=== PATIENT | female | born 1970 | race Caucasian/White ===

== ENCOUNTER 2023-02-03 07:58 | Outpatient (AMB) | payer BC, SELFPAY ==
[2023-02-03 08:04] VITALS: BP 114/72; PULSE 100; O2SAT 96; BMI 37.6
--- NOTE | 2023-02-03 08:04 | A.OFFPC_ITS ---
Vital Signs 02/03/23 08:04 Height 5 ft 3 in Weight 212 lb BMI 37.6 BP 114/72 Blood Pressure Location Lt brachial Position Sitting Pulse 100 Pulse Source Pulse Oximeter Pulse Oximetry (%) 96 Oxygen Delivery Method Room Air Intake Visit Reasons: Annual PE Intake Note: Pt is here today for PE. Allergies amoxicillin Allergy (Unknown, Verified 02/03/23 08:06) itchy throat codeine Allergy (Unknown, Verified 02/03/23 08:06) itchy throat penicillin V Allergy (Unknown, Verified 02/03/23 08:06) itchy throat Medication List - Last Reconciled 02/03/23 by Chelsea Ly MD ammonium lactate 12% 1 appl topical DAILY empagliflozin-linagliptin 25-5 mg (Glyxambi) 1 tab PO DAILY fluconazole 150 mg PO Q3D lidocaine 1.8% patches topical metformin ER 1,000 mg PO BID rosuvastatin (Crestor) 10 mg PO DAILY semaglutide (Ozempic) 2 mg (0.75 mL) subcut QWEEK Tobacco use date assessed: 02/03/23 Dental Screening Dental Screen Date: 02/03/23 Did you have a dental visit in the last 12 months?: Yes Did you have a dental problem in the last 6 months where you did not have access to dental care?: No Was dental information given to patient?: Patient has dentist HPI Annual PE HPI Details Pt presents for PE. COUNT INCLUDES [facility] Medical History (Updated 02/03/23 @ 08:52 by Chelsea Ly MD) Obesity Lower back pain Annual physical exam Hyperlipidemia DM type 2 (diabetes mellitus, type 2) Mammogram normal Normal Pap smear Lumbar disc herniation Diabetic eye exam Sleep apnea Carpal tunnel syndrome Surgical History History of carpal tunnel surgery Family History Mother No problems noted. Father No problems noted. Brother No problems noted. Brother No problems noted. Sister No problems noted. Sister No problems noted. Daughter No problems noted. Social History Household Members Other:: , 12 y/o daughter Housing: House Alcohol intake: current Alcohol intake frequency: holidays/special occasions only Patient Tobacco Use Status: Never used Tobacco e-Cigarette/Vaping Use: Never Used Current occupational status: employed Cognitive needs: No Hearing needs: No Vision needs: Yes Questionnaire Thrive Questionnaire Date Thrive assessed: 04/29/22 AUDIT C Alcohol Use Questionnaire (AUDIT-C) 1. How often do you have a drink containing alcohol?: Never 3. How often do you have six or more drinks on one occasion?: Never Total Score: 0 DAKOTA-7 AMB Questionnaire DAKOTA-7 Date DAKOTA - 7 assessed: 04/29/22 Source: Developed by Drs. Uche Stokes, Elizabeth Turner, Armando Barrios and colleagues, with an educational jamaica from [employer] Review of Systems Const All systems reviewed & are unremarkable except as noted in HPI and below Reports no additional complaints Eyes Reports no additional complaints ENT Reports no additional complaints Card Reports no additional complaints Resp Reports no additional complaints GI Reports no additional complaints Reports no additional complaints Physical exam (Primary Care) Vital Signs: Last Vital Signs Pulse 100 02/03/23 08:04 BP 114/72 02/03/23 08:04 Pulse Ox 96 02/03/23 08:04 Oxygen Delivery Method Room Air 02/03/23 08:04 BMI result Body Mass Index 37.6 Tobacco/Smoking Status: Tobacco use Status Tobacco use date assessed 02/03/23 02/03/23 08:08 Patient Tobacco Use Status Never used Tobacco 02/03/23 08:08 e-Cigarette/Vaping Use Never Used 02/03/23 08:05 Thrive Assessment: Date of Thrive Assessment Date Thrive assessed 04/29/22 02/03/23 08:05 Const General: no acute distress HENMT Head: Yes normal to inspection Ears: hearing grossly normal bilaterally Face and sinus: Yes normal facial exam Eyes General: appearance normal, both eyes and all related structures Neck Neck: Yes no lymphadenopathy and Yes supple Resp Effort & Inspection: normal respiratory effort Auscultation: clear to auscultation bilaterally Cardio Rhythm: regular rhythm Heart sounds: S1 normal heart sound present and S2 normal heart sound present GI Inspection: Yes normal to inspection Palpation (GI): Soft to palpation Percussion: Yes normal to percussion Auscultation: normal bowel sounds Extrem Other: Diabetic foot exam: skin is intact monofilament and vibration sensation intact bilaterally General: Yes no clubbing, cyanosis or edema Office Procedures Flu Questionnaire Does the patient have a severe egg allergy?: No Does the patient have severe life threatening allergies?: No Does the patient have a fever or illness today?: No Has the patient ever had Guillain-Artesia Syndrome?: No Has the patient ever had any past reaction to a flu shot?: No Immunizations flu vacc [id number] 6mos up(PF) 60 mcg(15 mcgx4)/0.5 mL IM syringe Performing Provider: Chelsea Ly MD Performing Location: [facility] Administered by: ELLIOTT Lawrence on 02/03/23 08:13 Dose Route Admin Location Dispensed Lot Number Expiration Date NDC 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 She will continue same medications follow-up in 4 months with a fasting labs before (2) Hyperlipidemia: Code(s): E78.5 - Hyperlipidemia, unspecified Plan: Continue statin (3) Colon cancer screening: Comment: negative Colreza 12/08 Code(s): Z12.11 - Encounter for screening for malignant neoplasm of colon (4) Mammogram normal: Comment: 10/2022 (5) Normal Pap smear: Comment: 11/2021 Dr. Conway (6) Annual physical exam: Code(s): Z00.00 - Encounter for general adult medical examination without abnormal findings Plan: Well-balanced diet regular exercise discussed with the patient (7) Obesity: Code(s): E66.9 - Obesity, unspecified Plan: Weight loss discussed with the patient Orders: Orders Influenza [id number] Immunization Today Z23 - Encounter for immunization Hemoglobin A1c 4 Months E11.9 - Type 2 diabetes mellitus without complications, E78.5 - Hyperlipidemia, unspecified Lipid Panel 4 Months E11.9 - Type 2 diabetes mellitus without complications, E78.5 - Hyperlipidemia, unspecified Complete Blood Count Man Dif 4 Months E11.9 - Type 2 diabetes mellitus without complications, E78.5 - Hyperlipidemia, unspecified Comprehensive [place]. Panel Fast 4 Months E11.9 - Type 2 diabetes mellitus without complications, E78.5 - Hyperlipidemia, unspecified Microalbumin, Random (w Creat) 4 Months E11.9 - Type 2 diabetes mellitus without complications, E78.5 - Hyperlipidemia, unspecified Coding Level of Care Code Est Pt Prev Care 40-64y(92894) Diagnoses DM type 2 (diabetes mellitus, type 2) E11.9 Hyperlipidemia E78.5 Colon cancer screening Z12.11 Mammogram normal Normal Pap smear Annual physical exam Z00.00 Obesity E66.9
== END 2023-02-03 08:39 | disposition home or self-care (01) ==
PROVIDERS: Visit Provider Internal Medicine
DX: Z00.00 Encounter for general adult medical examination without abnormal findings (principal); E11.9 Type 2 diabetes mellitus without complications; E78.5 Hyperlipidemia, unspecified; Z12.11 Encounter for screening for malignant neoplasm of colon; E66.9 Obesity, unspecified; Z23 Encounter for immunization
CPT/HCPCS: 90471; 90686; 99396

== ENCOUNTER 2023-06-06 09:23 | Outpatient (AMB) | payer BC, SELFPAY ==
--- NOTE | 2023-06-06 09:26 | MHC.PC.OV ---
Vital Signs 06/06/23 09:27 Height 5 ft 3 in Weight 211 lb BMI 37.4 BP 110/66 Blood Pressure Location Lt brachial Position Sitting Pulse 75 Pulse Source Pulse Oximeter Pulse Oximetry (%) 98 Oxygen Delivery Method Room Air Intake Visit Reasons: 4 month follow up Intake Note: Pt is here today for 4 months follow up visit. Allergies amoxicillin Allergy (Unknown, Verified 06/06/23 09:29) itchy throat codeine Allergy (Unknown, Verified 06/06/23 09:29) itchy throat penicillin V Allergy (Unknown, Verified 06/06/23 09:29) itchy throat Medication List - Last Reconciled 06/06/23 by Chelsea Ly MD ammonium lactate 12% 1 appl topical DAILY empagliflozin-linagliptin 25-5 mg (Glyxambi) 1 tab PO DAILY fluconazole 150 mg PO Q3D lidocaine 1.8% patches topical lisinopril 2.5 mg PO DAILY metformin ER 1,000 mg PO BID Mounjaro (tirzepatide) 10 mg (0.5 mL) subcut QWEEK NS rosuvastatin (Crestor) 10 mg PO DAILY semaglutide (Ozempic) 2 mg (0.75 mL) subcut QWEEK Tobacco use date assessed: 06/06/23 Dental Screening Dental Screen Date: 06/06/23 Did you have a dental visit in the last 12 months?: Yes Did you have a dental problem in the last 6 months where you did not have access to dental care?: No Was dental information given to patient?: Patient has dentist HPI 4 month follow up HPI Details Pt presents for f/u DM 2, hyperlipid, stable on meds. [facility] Medical History (Updated 06/06/23 @ 10:06 by Chelsea Ly MD) Obesity Lower back pain Annual physical exam Hyperlipidemia DM type 2 (diabetes mellitus, type 2) Mammogram normal Normal Pap smear Lumbar disc herniation Diabetic eye exam Sleep apnea Carpal tunnel syndrome Surgical History History of carpal tunnel surgery Family History Mother No problems noted. Father No problems noted. Brother No problems noted. Brother No problems noted. Sister No problems noted. Sister No problems noted. Daughter No problems noted. Social History Household Members Other:: , 12 y/o daughter Housing: House Alcohol intake: current Alcohol intake frequency: holidays/special occasions only Patient Tobacco Use Status: Never used Tobacco e-Cigarette/Vaping Use: Never Used Current occupational status: employed Cognitive needs: No Hearing needs: No Vision needs: Yes Questionnaire PHQ-9 Over the last 2 weeks, how often have you been bothered by any of the following problems? 1. Little interest or pleasure in doing things: not at all 2. Feeling down, depressed, or hopeless: not at all 3. Trouble falling or staying asleep, or sleeping too much: more than half the days 4. Feeling tired or having little energy: not at all 5. Poor appetite or overeating: several days 6. Feeling bad about yourself - or that you are a failure or have let yourself or your family down: not at all 7. Trouble concentrating on things, such as reading the newspaper or watching television: not at all 8. Moving or speaking so slowly that other people could have noticed. Or the opposite - being so fidgety or restless that you have been moving around a lot more than usual: not at all 9. Thoughts that you would be better off or of hurting yourself in some way: not at all Total score: 3 Depression Screening Interpretation: Negative Depression Screening Done: Yes Source: Developed by Drs. Uche Stokes, Elizabeth Turner, Armando Barrios and colleagues, with an educational j[place] from [email or web address]. Thrive Questionnaire Date Thrive assessed: 06/06/23 I am a: Patient What is your living situation today?: I have a steady place to live Within the past 12 months, did the food you bought not last and you didn't have the money to get more?: Never true Within the past 12 months, did you worry whether your food would run out before you got money to buy more?: Never true Do you have trouble paying for medicines?: No Do you have trouble getting transportation to medical appointments?: No Do you have trouble paying your heating and electricity bill?: No Do you have trouble taking care of your child, family member or friend?: No Do you have trouble with day-to-day activities such as bathing, preparing meals, shopping, managing finances, etc.?: No Are you currently unemployed and looking for a job?: No Are you interested in more education?: No Please select the resources that you would like help with: None Currently or been in a relationship where the following occur: no concerns reported THRIVE Score: 0 AUDIT C Alcohol Use Questionnaire (AUDIT-C) 1. How often do you have a drink containing alcohol?: Never 3. How often do you have six or more drinks on one occasion?: Never Total Score: 0 DAKOTA-7 AMB Questionnaire DAKOTA-7 Date DAKOTA - 7 assessed: 06/06/23 Feeling nervous, anxious, or on edge: 0 = Not at all Not being able to stop or control worryin = Not at all Worrying too much about different things: 0 = Not at all Trouble relaxin = Not at all Being so restless that it is hard to sit still: 0 = Not at all Becoming easily annoyed or irritable: 0 = Not at all Feeling afraid as if something awful might happen: 0 = Not at all Total DAKOTA-7 score (0-4 normal; 5-9 mild; 10-14 moderate; 15-21 severe): 0 Source: Developed by Drs. Uche Stokes, Elizabeth Turner, Armando Barrios and colleagues, with an educational j[place] from [email or web address]. Review of Systems Const All systems reviewed & are unremarkable except as noted in HPI and below Reports no additional complaints Eyes Reports no additional complaints ENT Reports no additional complaints Card Reports no additional complaints Resp Reports no additional complaints GI Reports no additional complaints Reports no additional complaints Musc Reports no additional complaints Physical exam (Primary Care) Vital Signs: Last Vital Signs Pulse 75 06/06/23 09:27 BP 110/66 06/06/23 09:27 Pulse Ox 98 06/06/23 09:27 Oxygen Delivery Method Room Air 06/06/23 09:27 BMI result Body Mass Index 37.4 Tobacco/Smoking Status: Tobacco use Status Tobacco use date assessed 06/06/23 06/06/23 09:29 Patient Tobacco Use Status Never used Tobacco 06/06/23 09:29 e-Cigarette/Vaping Use Never Used 06/06/23 09:29 PHQ-9: PHQ-9 Score PHQ-9: Total score 3 06/06/23 09:33 Depression Screening Interpretation: Negative Thrive Assessment: Date of Thrive Assessment Date Thrive assessed 06/06/23 06/06/23 09:33 Currently or been in a relationship where the following occur: no concerns reported Const General: well developed HENMT Head: Yes normal to inspection Ears: hearing grossly normal bilaterally Face and sinus: Yes normal facial exam Mouth: Normal oral and palatal mucosa present Neck Neck: Yes no lymphadenopathy and Yes supple Resp Effort & Inspection: normal respiratory effort Auscultation: clear to auscultation bilaterally Cardio Rhythm: regular rhythm Heart sounds: S1 normal heart sound present and S2 normal heart sound present GI Inspection: Yes normal to inspection Palpation (GI): Soft to palpation Percussion: Yes normal to percussion Auscultation: normal bowel sounds Assessment and Plan Assessment & Plan (1) DM type 2 (diabetes mellitus, type 2): Code(s): E11.9 - Type 2 diabetes mellitus without complications Plan: A1c is 6.9, ADA diet increase exercise weight loss discussed with the patient she was advised to monitor her fasting blood glucose daily. Ozempic will be changed to Mounjaro 10 mg weekly and patient will continue metformin and Glyxambi (2) Annual physical exam: Code(s): Z00.00 - Encounter for general adult medical examination without abnormal findings (3) Hyperlipidemia: Code(s): E78.5 - Hyperlipidemia, unspecified Plan: Continue statin (4) Microalbuminuria: Code(s): R80.9 - Proteinuria, unspecified Plan: For microalbuminuria lisinopril 2.5 mg daily will be started. Follow-up in 3 months with a fasting labs before Orders: Orders Lipid Panel 3 Months E11.9 - Type 2 diabetes mellitus without complications, E78.5 - Hyperlipidemia, unspecified Comprehensive [place]. Panel Fast 3 Months E11.9 - Type 2 diabetes mellitus without complications, E78.5 - Hyperlipidemia, unspecified Hemoglobin A1c 3 Months E11.9 - Type 2 diabetes mellitus without complications, E78.5 - Hyperlipidemia, unspecified Medications: New Mounjaro (tirzepatide) 10 mg (0.5 mL) subcut QWEEK 6 mL 3RF NS lisinopril 2.5 mg PO DAILY 90 tabs 0RF Mounjaro (tirzepatide) 10 mg (0.5 mL) subcut QWEEK 6 mL 3RF NS lisinopril 2.5 mg PO DAILY 90 tabs 0RF Discontinued semaglutide (Ozempic) Discontinued Reason: Doctor's Order 2 mg (0.75 mL) subcut QWEEK 9 mL 1RF Coding Level of Care Code Est Pt Level 4 (03225) Diagnoses DM type 2 (diabetes mellitus, type 2) E11.9 Annual physical exam Z00.00 Hyperlipidemia E78.5 Microalbuminuria R80.9
[2023-06-06 09:27] VITALS: BP 110/66; PULSE 75; O2SAT 98; BMI 37.4
== END 2023-06-06 10:01 | disposition home or self-care (01) ==
PROVIDERS: PCP Internal Medicine; Visit Provider Internal Medicine
DX: E11.9 Type 2 diabetes mellitus without complications (principal); Z00.00 Encounter for general adult medical examination without abnormal findings; E78.5 Hyperlipidemia, unspecified; R80.9 Proteinuria, unspecified
CPT/HCPCS: 99214

== ENCOUNTER 2023-07-22 07:51 | Outpatient (AMB) | payer BC, SELFPAY ==
[2023-07-22 08:09] VITALS: BP 108/70; PULSE 109; O2SAT 98; BMI 35.6
--- NOTE | 2023-07-22 08:09 | MHC.PC.OV ---
Vital Signs 07/22/23 08:09 Height 5 ft 3 in Weight 201 lb BMI 35.6 BP 108/70 Blood Pressure Location Rt brachial Position Sitting Pulse 109 H Pulse Source Pulse Oximeter Pulse Oximetry (%) 98 Oxygen Delivery Method Room Air Intake Visit Reasons: Diarrhea, ? med side effect Intake Note: Pt is here today for a sick visit. Pt c/o diarrhea since Tuesday. Allergies amoxicillin Allergy (Unknown, Verified 07/22/23 08:17) itchy throat codeine Allergy (Unknown, Verified 07/22/23 08:17) itchy throat penicillin V Allergy (Unknown, Verified 07/22/23 08:17) itchy throat Tobacco use date assessed: 06/06/23 Dental Screening Dental Screen Date: 06/06/23 HPI Diarrhea, ? med side effect HPI Details Patient complains of 5 days of watery diarrhea some abdominal discomfort and nausea but no vomiting fever chills hematochezia melena. She denies taking any new medications or eating at the restaurants. Patient has been keeping the fluids down. Diabetes is stable on current medications. [facility] Medical History (Updated 07/22/23 @ 08:48 by Chelsea Ly MD) Obesity Lower back pain Annual physical exam Hyperlipidemia DM type 2 (diabetes mellitus, type 2) Mammogram normal Normal Pap smear Lumbar disc herniation Diabetic eye exam Sleep apnea Carpal tunnel syndrome Surgical History History of carpal tunnel surgery Family History Mother No problems noted. Father No problems noted. Brother No problems noted. Brother No problems noted. Sister No problems noted. Sister No problems noted. Daughter No problems noted. Social History Household Members Other:: , 12 y/o daughter Housing: House Alcohol intake: current Alcohol intake frequency: holidays/special occasions only Patient Tobacco Use Status: Never used Tobacco e-Cigarette/Vaping Use: Never Used Current occupational status: employed Cognitive needs: No Hearing needs: No Vision needs: Yes Questionnaire Thrive Questionnaire Date Thrive assessed: 06/06/23 DAKOTA-7 AMB Questionnaire DAKOTA-7 Date DAKOTA - 7 assessed: 06/06/23 Source: Developed by Drs. Uche Stokes, Elizabeth Turner, Armando Barrios and colleagues, with an educational j[place] from [employer]. Review of Systems Const All systems reviewed & are unremarkable except as noted in HPI and below Reports no additional complaints Eyes Reports no additional complaints ENT Reports no additional complaints Resp Reports no additional complaints GI Reports no additional complaints Reports no additional complaints Musc Reports no additional complaints Physical exam (Primary Care) Vital Signs: Last Vital Signs Pulse 109 H 07/22/23 08:09 BP 108/70 07/22/23 08:09 Pulse Ox 98 07/22/23 08:09 Oxygen Delivery Method Room Air 07/22/23 08:09 BMI result Body Mass Index 35.6 Tobacco/Smoking Status: Tobacco use Status Tobacco use date assessed 06/06/23 07/22/23 08:09 Patient Tobacco Use Status Never used Tobacco 07/22/23 08:09 e-Cigarette/Vaping Use Never Used 07/22/23 08:09 Thrive Assessment: Date of Thrive Assessment Date Thrive assessed 06/06/23 07/22/23 08:09 Const General: no acute distress HENMT Head: Yes normal to inspection Throat: Yes posterior oropharynx normal Resp Effort & Inspection: normal respiratory effort Auscultation: clear to auscultation bilaterally Cardio Rhythm: regular rhythm Heart sounds: S1 normal heart sound present and S2 normal heart sound present GI Inspection: Yes normal to inspection Palpation (GI): Soft to palpation Percussion: Yes normal to percussion Auscultation: normal bowel sounds Assessment and Plan Assessment & Plan (1) Diarrhea: Code(s): R19.7 - Diarrhea, unspecified Plan: For acute diarrhea supportive care discussed with the patient, comprehensive panel and stool studies will be obtained. Patient was advised to decrease metformin to once and skip Mounjaro this weekend. Orders: Orders Comprehensive Met. Panel Today R19.7 - Diarrhea, unspecified Complete Blood Count Auto Diff Today R19.7 - Diarrhea, unspecified GI Panel Today R19.7 - Diarrhea, unspecified Coding Level of Care Code Est Pt Level 3 (99574) Diagnoses Diarrhea R19.7
== END 2023-07-22 08:43 | disposition home or self-care (01) ==
PROVIDERS: PCP Internal Medicine; Visit Provider Internal Medicine
DX: R19.7 Diarrhea, unspecified (principal)
CPT/HCPCS: 99213

== ENCOUNTER 2023-07-22 08:46 | Outpatient (REF) | payer BC, SELFPAY ==
[2023-07-22 10:25] LABS: MANUAL DIFF FLAG NO
[2023-07-22 10:50] LABS: Basophils Percent Auto 0.3 % (0-2); Eosinophils Absolute Auto 0.2 X10*3/uL (0.0-0.4); Eosinophils Percent Auto 2.1 % (0-4); Hematocrit 49.2 % (37.0-47.0); Hemoglobin 16.2 g/dl (12.0-16.0); Imm Gran Abs Auto 0.04 X10*3/uL (0.00-0.03); Imm Gran Pct Auto 0.4 % (0.0-0.4); Lymphocytes Absolute Auto 2.4 X10*3/uL (1.2-4.9); Lymphocytes Percent Auto 22.5 % (20-40); Mean Corpuscular HGB Conc 32.9 g/dl (31.0-35.0); Mean Corpuscular Hemoglobin 28.4 pg (27.0-33.0); Mean Corpuscular Volume 86.3 fL (80.0-98.0); Mean Platelet Volume 10.2 fL (9.4-12.3); Monocytes Absolute Auto 0.8 X10*3/uL (0.1-1.2); Monocytes Percent Auto 7.4 % (2-11); Neutrophils Absolute Auto 7.2 x10*3/uL (2.0-8.3); Neutrophils Percent Auto 67.3 % (45-73); Platelet Count 325 X10*3/uL (160-400); Red Cell Distribution Width 13.2 % (11.0-16.0); White Blood Count 10.7 X10*3/uL (4.8-10.8)
[2023-07-22 11:08] LABS: Alanine Aminotransferase 12 U/L (0-31); Albumin Level 4.3 g/dL (3.5-5.0); Alkaline Phosphatase 88 U/L (39-117); Anion Gap 15 (12-20); Aspartate Amino Transferase 8 U/L (5-31); Bilirubin Total 0.7 mg/dL (0.0-1.0); Blood Urea Nitrogen 11 mg/dL (9-16); Calcium 10.3 mg/dL (8.4-10.2); Carbon Dioxide 23 mmol/L (22-29); Chloride 105 mmol/L (96-108); Estimated Glomerular Filt Rate > 60; Glucose Random 162 mg/dL (60-115); Potassium 3.3 mmol/L (3.3-5.1); Sodium 140 mmol/L (135-145); Total Protein 7.9 g/dL (6.5-8.0)
== END 2023-07-22 08:47 | disposition home or self-care (01) ==
LOC: HO.HMGCLDS 08:46
PROVIDERS: PCP Internal Medicine; Visit Provider Internal Medicine
DX: R19.7 Diarrhea, unspecified (principal)
CPT/HCPCS: 36415; 80053; 85025

== ENCOUNTER 2023-07-26 06:15 | Outpatient (REF) | payer BC, SELFPAY ==
[2023-07-26 12:31] LABS: Adenovirus F 40/41 Not Detected (Not Detect.); Astrovirus Not Detected (Not Detect.); Campylobacter Not Detected (Not Detect.); Cryptosporidium Not Detected (Not Detect.); Cyclospora cayetanensis Not Detected (Not Detect.); E. coli EAEC Not Detected (Not Detect.); E. coli EPEC Not Detected (Not Detect.); E. coli ETEC Not Detected (Not Detect.); E. coli STEC Not Detected (Not Detect.); Entamoeba histolytica Not Detected (Not Detect.); Giardia lamblia Not Detected (Not Detect.); Norovirus GI/GII Not Detected (Not Detect.); Plesiomonas shigelloides Not Detected (Not Detect.); Rotavirus A Not Detected (Not Detect.); Salmonella Not Detected (Not Detect.); Sapovirus Not Detected (Not Detect.); Shigella sp./EIEC Not Detected (Not Detect.); Vibrio Not Detected (Not Detect.); Vibrio Cholerae Not Detected (Not Detect.); Yersinia enterocolitica Not Detected (Not Detect.)
== END 2023-07-26 06:16 | disposition home or self-care (01) ==
LOC: HO.HMGCLNP 06:15
PROVIDERS: PCP Internal Medicine; Visit Provider Internal Medicine
DX: R19.7 Diarrhea, unspecified (principal)
CPT/HCPCS: 87507

== ENCOUNTER 2023-09-05 11:06 | Outpatient (AMB) | payer BC, SELFPAY ==
[2023-09-05 11:14] VITALS: BP 102/62; PULSE 86; O2SAT 97; BMI 36.0
--- NOTE | 2023-09-05 11:14 | A.OFFPC_ITS ---
Vital Signs 09/05/23 11:14 Height 5 ft 3 in Weight 203 lb BMI 36.0 BP 102/62 Blood Pressure Location Rt brachial Position Sitting Pulse 86 Pulse Source Pulse Oximeter Pulse Oximetry (%) 97 Oxygen Delivery Method Room Air Intake Visit Reasons: 3 month Intake Note: Pt is here today for 3 months follow up visit. Allergies amoxicillin Allergy (Unknown, Verified 09/05/23 11:16) itchy throat codeine Allergy (Unknown, Verified 09/05/23 11:16) itchy throat penicillin V Allergy (Unknown, Verified 09/05/23 11:16) itchy throat Medication List - Last Reconciled 09/05/23 by Chelsea Ly MD ammonium lactate 12% 1 appl topical DAILY empagliflozin-linagliptin 25-5 mg (Glyxambi) 1 tab PO DAILY fluconazole 150 mg PO Q3D lidocaine 1.8% patches topical lisinopril 2.5 mg PO DAILY metformin ER 1,000 mg PO BID Mounjaro (tirzepatide) 10 mg (0.5 mL) subcut QWEEK NS rosuvastatin (Crestor) 10 mg PO DAILY Tobacco use date assessed: 09/05/23 Dental Screening Dental Screen Date: 06/06/23 HPI 3 month HPI Details Patient presents for the follow-up of type 2 diabetes hypertension hyperlipidemia stable on current medications. She follows up with the pain management for chronic lower back pain and has been taking prednisone on and off for flare-ups. [facility] Medical History Obesity Lower back pain Annual physical exam Hyperlipidemia DM type 2 (diabetes mellitus, type 2) Mammogram normal Normal Pap smear Lumbar disc herniation Diabetic eye exam Sleep apnea Carpal tunnel syndrome Surgical History History of carpal tunnel surgery Family History Mother No problems noted. Father No problems noted. Brother No problems noted. Brother No problems noted. Sister No problems noted. Sister No problems noted. Daughter No problems noted. Social History Household Members Other:: , 12 y/o daughter Housing: House Alcohol intake: current Alcohol intake frequency: holidays/special occasions only Patient Tobacco Use Status: Never used Tobacco e-Cigarette/Vaping Use: Never Used service: No Current occupational status: employed Cognitive needs: No Hearing needs: No Vision needs: Yes Questionnaire Thrive Questionnaire Date Thrive assessed: 06/06/23 DAKOTA-7 AMB Questionnaire DAKOTA-7 Date DAKOTA - 7 assessed: 06/06/23 Source: Developed by Drs. Uche Stokes, Elizabeth Turner, Armando Barrios and colleagues, with an educational j[place] from [employer]. Review of Systems Const All systems reviewed & are unremarkable except as noted in HPI and below ENT Reports no additional complaints Resp Reports no additional complaints GI Reports no additional complaints Physical exam (Primary Care) Vital Signs: Last Vital Signs Pulse 86 09/05/23 11:14 BP 102/62 09/05/23 11:14 Pulse Ox 97 09/05/23 11:14 Oxygen Delivery Method Room Air 09/05/23 11:14 BMI result Body Mass Index 36.0 Tobacco/Smoking Status: Tobacco use Status Tobacco use date assessed 09/05/23 09/05/23 11:17 Patient Tobacco Use Status Never used Tobacco 09/05/23 11:17 e-Cigarette/Vaping Use Never Used 09/05/23 11:17 Thrive Assessment: Date of Thrive Assessment Date Thrive assessed 06/06/23 09/05/23 11:17 Const General: no acute distress Eyes General: appearance normal, both eyes and all related structures Resp Effort & Inspection: normal respiratory effort Auscultation: clear to auscultation bilaterally Cardio Rhythm: regular rhythm Heart sounds: S1 normal heart sound present and S2 normal heart sound present GI Inspection: Yes normal to inspection Assessment and Plan Assessment & Plan (1) Hyperlipidemia: Code(s): E78.5 - Hyperlipidemia, unspecified Plan: Continue statin (2) DM type 2 (diabetes mellitus, type 2): Code(s): E11.9 - Type 2 diabetes mellitus without complications Plan: A1c is 7.5. ADA diet increase physical activity weight loss discussed with the patient. Mounjaro will be increased to 12.5 mg weekly. Follow-up in 4 months with a fasting labs before (3) Lower back pain: Comment: Follows up with pain management getting radiofrequency treatment Code(s): M54.5 - Low back pain Plan: Follow-up with pain management. Patient was advised to avoid steroids (4) Obesity: Code(s): E66.9 - Obesity, unspecified Plan: Increase physical activity decrease caloric intake and weight loss discussed with the patient Orders: Orders Hemoglobin A1c 4 Months E11.9 - Type 2 diabetes mellitus without complications, E78.5 - Hyperlipidemia, unspecified Comprehensive [place]. Panel Fast 4 Months E11.9 - Type 2 diabetes mellitus without complications, E78.5 - Hyperlipidemia, unspecified Microalbumin, Random (w Creat) 4 Months E11.9 - Type 2 diabetes mellitus without complications, E78.5 - Hyperlipidemia, unspecified Medications: New Mounjaro (tirzepatide) 12.5 mg (0.5 mL) subcut QWEEK 6 mL 3RF NS Coding Level of Care Code Est Pt Level 4 (50757) Diagnoses Hyperlipidemia E78.5 DM type 2 (diabetes mellitus, type 2) E11.9 Lower back pain M54.5 Obesity E66.9
== END 2023-09-05 12:02 | disposition home or self-care (01) ==
PROVIDERS: PCP Internal Medicine; Visit Provider Internal Medicine
DX: E78.5 Hyperlipidemia, unspecified (principal); E11.9 Type 2 diabetes mellitus without complications; E66.9 Obesity, unspecified; Z68.36 Body mass index [BMI] 36.0-36.9, adult; M54.50 Low back pain, unspecified
CPT/HCPCS: 99214

== ENCOUNTER 2024-01-09 09:17 | Outpatient (AMB) | payer BC, SELFPAY ==
[2024-01-09 09:24] VITALS: BP 106/64; PULSE 81; O2SAT 98; BMI 35.4
--- NOTE | 2024-01-09 09:24 | MHC.PC.OV ---
Vital Signs 01/09/24 09:24 Height 5 ft 3 in Weight 200 lb BMI 35.4 BP 106/64 Blood Pressure Location Lt brachial Position Sitting Pulse 81 Pulse Source Pulse Oximeter Pulse Oximetry (%) 98 Oxygen Delivery Method Room Air Intake Visit Reasons: 4 month Intake Note: Pt is here today for 4 months follow up visit on DM. Allergies amoxicillin Allergy (Unknown, Verified 01/09/24 09:26) itchy throat codeine Allergy (Unknown, Verified 01/09/24 09:26) itchy throat penicillin V Allergy (Unknown, Verified 01/09/24 09:26) itchy throat Medication List - Last Reconciled 01/09/24 by Chelsea Ly MD ammonium lactate 12% 1 appl topical DAILY empagliflozin-linagliptin 25-5 mg (Glyxambi) 1 tab PO DAILY fluconazole 150 mg PO Q3D lidocaine 1.8% patches topical lisinopril 2.5 mg PO DAILY metformin ER 1,000 mg PO BID Mounjaro (tirzepatide) 12.5 mg (0.5 mL) subcut QWEEK NS rosuvastatin (Crestor) 10 mg PO DAILY Tobacco use date assessed: 01/09/24 Dental Screening Dental Screen Date: 06/06/23 HPI 4 month HPI Details Pt presents for F/U DM2 , hypertension hyperlipidemia. She lost 20 lb on Mounjaro and reports decreased appetite and improved fasting blood glucose readings. [facility] Medical History (Updated 01/09/24 @ 10:53 by Chelsea Ly MD) Obesity Lower back pain Annual physical exam Hyperlipidemia DM type 2 (diabetes mellitus, type 2) Mammogram normal Normal Pap smear Lumbar disc herniation Diabetic eye exam Sleep apnea Carpal tunnel syndrome Surgical History History of carpal tunnel surgery Family History Mother No problems noted. Father No problems noted. Brother No problems noted. Brother No problems noted. Sister No problems noted. Sister No problems noted. Daughter No problems noted. Social History Household Members Other:: , 12 y/o daughter Housing: House Alcohol intake: current Alcohol intake frequency: holidays/special occasions only Patient Tobacco Use Status: Never used Tobacco e-Cigarette/Vaping Use: Never Used service: No Current occupational status: employed Cognitive needs: No Hearing needs: No Vision needs: Yes Questionnaire PHQ-9 Over the last 2 weeks, how often have you been bothered by any of the following problems? 1. Little interest or pleasure in doing things: not at all 2. Feeling down, depressed, or hopeless: not at all 3. Trouble falling or staying asleep, or sleeping too much: not at all 4. Feeling tired or having little energy: not at all 5. Poor appetite or overeating: not at all 6. Feeling bad about yourself - or that you are a failure or have let yourself or your family down: not at all 7. Trouble concentrating on things, such as reading the newspaper or watching television: not at all 8. Moving or speaking so slowly that other people could have noticed. Or the opposite - being so fidgety or restless that you have been moving around a lot more than usual: not at all 9. Thoughts that you would be better off or of hurting yourself in some way: not at all Total score: 0 Depression Screening Interpretation: Negative Depression Screening Done: Yes 57524 - PHQ-9 Billing: Yes Source: Developed by Drs. Uche Stokes, Elizabeth Turner, Armando Barrios and colleagues, with an educational j[place] from [employer]. Thrive Questionnaire Date Thrive assessed: 01/06/24 I am a: Patient What is your living situation today?: I have a steady place to live Within the past 12 months, did the food you bought not last and you didn't have the money to get more?: Never true Within the past 12 months, did you worry whether your food would run out before you got money to buy more?: Never true Do you have trouble paying for medicines?: No Do you have trouble getting transportation to medical appointments?: No Do you have trouble paying your heating and electricity bill?: No Do you have trouble taking care of your child, family member or friend?: No Do you have trouble with day-to-day activities such as bathing, preparing meals, shopping, managing finances, etc.?: No Are you interested in more education?: No Please select the resources that you would like help with: None Currently or been in a relationship where the following occur: No concerns reported THRIVE Score: 0 AUDIT C Alcohol Use Questionnaire (AUDIT-C) 1. How often do you have a drink containing alcohol?: Never Total Score: 0 DAKOTA-7 AMB Questionnaire DAKOTA-7 Date DAKOTA - 7 assessed: 06/06/23 Feeling nervous, anxious, or on edge: 0 = Not at all Not being able to stop or control worryin = Not at all Worrying too much about different things: 0 = Not at all Trouble relaxin = Not at all Being so restless that it is hard to sit still: 0 = Not at all Becoming easily annoyed or irritable: 0 = Not at all Feeling afraid as if something awful might happen: 0 = Not at all Total DAKOTA-7 score (0-4 normal; 5-9 mild; 10-14 moderate; 15-21 severe): 0 Source: Developed by Drs. Uche Stokes, Elizabeth Turner, Armando Barrios and colleagues, with an educational j[place] from [employer]. Review of Systems Const All systems reviewed & are unremarkable except as noted in HPI and below Eyes Reports no additional complaints ENT Reports no additional complaints Card Reports no additional complaints Resp Reports no additional complaints GI Reports no additional complaints Reports no additional complaints Physical exam (Primary Care) Vital Signs: Last Vital Signs Pulse 81 01/09/24 09:24 BP 106/64 01/09/24 09:24 Pulse Ox 98 01/09/24 09:24 Oxygen Delivery Method Room Air 01/09/24 09:24 BMI result Body Mass Index 35.4 Tobacco/Smoking Status: Tobacco use Status Tobacco use date assessed 01/09/24 01/09/24 09:28 Patient Tobacco Use Status Never used Tobacco 01/09/24 09:28 e-Cigarette/Vaping Use Never Used 01/09/24 09:25 PHQ-9: PHQ-9 Score PHQ-9: Total score 0 01/09/24 10:00 Depression Screening Interpretation: Negative Thrive Assessment: Date of Thrive Assessment Date Thrive assessed 01/06/24 01/09/24 09:25 Currently or been in a relationship where the following occur: No concerns reported Const General: no acute distress HENMT Face and sinus: Yes normal facial exam Neck Neck: Yes supple Resp Effort & Inspection: normal respiratory effort Auscultation: clear to auscultation bilaterally Cardio Rhythm: regular rhythm Heart sounds: S1 normal heart sound present and S2 normal heart sound present GI Inspection: Yes normal to inspection Palpation (GI): Soft to palpation Percussion: Yes normal to percussion Auscultation: normal bowel sounds Assessment and Plan Assessment & Plan (1) Hyperlipidemia: Code(s): E78.5 - Hyperlipidemia, unspecified Plan: Continue statin (2) DM type 2 (diabetes mellitus, type 2): Code(s): E11.9 - Type 2 diabetes mellitus without complications Plan: A1c is down to 6.6, continue current medications ADA diet increase physical activity follow-up in 3 months with a fasting labs before (3) HTN (hypertension): Code(s): I10 - Essential (primary) hypertension Plan: CONTINUE LISINOPRIL Orders: Orders Lipid Panel 3 Months E11.9 - Type 2 diabetes mellitus without complications, E78.5 - Hyperlipidemia, unspecified Hemoglobin A1c 3 Months E11.9 - Type 2 diabetes mellitus without complications, E78.5 - Hyperlipidemia, unspecified Comprehensive [place]. Panel Fast 3 Months E11.9 - Type 2 diabetes mellitus without complications, E78.5 - Hyperlipidemia, unspecified Coding Level of Care Code Est Pt Level 4 (87505) Diagnoses Hyperlipidemia E78.5 DM type 2 (diabetes mellitus, type 2) E11.9 HTN (hypertension) I10
== END 2024-01-09 10:53 | disposition home or self-care (01) ==
PROVIDERS: PCP Internal Medicine; Visit Provider Internal Medicine
DX: E78.5 Hyperlipidemia, unspecified (principal); E11.9 Type 2 diabetes mellitus without complications; I10 Essential (primary) hypertension

== ENCOUNTER → 2024-01-09 09:17 | Outpatient (BNVA) | payer BC, SELFPAY | PROVIDERS: PCP Internal Medicine; Visit Provider Internal Medicine | DX: E11.9 Type 2 diabetes mellitus without complications (principal); E78.5 Hyperlipidemia, unspecified; I10 Essential (primary) hypertension; Z79.899 Other long term (current) drug therapy | CPT/HCPCS: 96127 ==

== ENCOUNTER 2024-03-30 09:18 | Outpatient (AMB) | payer BC, SELFPAY ==
--- OUTSIDE RECORDS SUMMARY | 2024-03-30 09:21 | XMS_ITS ---
Author Name [facility] Organization Unknown History of Medication Use Medication Directions Dispensed Refills Start Date End Date Stat us metFORMIN (FORTAMET) 1000 MG (OSM) 24 hr tablet 06/07/2023 active rosuvastatin (CRESTOR) 10 MG tablet 06/07/2023 active rosuvastatin (CRESTOR) 10 MG tablet 06/07/2023 active Glyxambi 25-5 MG per tablet 06/07/2023 active Ozempic, 2 MG/DOSE, 8 MG/3ML prefilled pen injection 06/07/2023 active HYDROcodone-acetamino phen (NORCO) 5-325 mg per tablet 06/07/2023 active proMETHAZINE-dextrome thorphan (proMETHAZINE-DM) 6.25-15 MG/5ML syrup Take 5 mL by mouth 4 times daily (every 6 hours) as needed for cough. 06/07/2023 active benzonatate (TESSALON) 200 MG capsule Take 1 capsule (200 mg total) by mouth 3 (three) times a day as needed for cough. 06/07/2023 active Problems Problem Status Onset Date Problem Type Date of Resoluti on Source Viral URI with cough [facility]
[2024-03-30 09:23] VITALS: BP 116/74; PULSE 86; O2SAT 97; BMI 34.0
--- NOTE | 2024-03-30 09:23 | A.OFFPC_ITS ---
Vital Signs 03/30/24 09:23 Height 5 ft 3 in Weight 192 lb BMI 34.0 BP 116/74 Blood Pressure Location Rt brachial Position Sitting Pulse 86 Pulse Source Pulse Oximeter Pulse Oximetry (%) 97 Oxygen Delivery Method Room Air Intake Visit Reasons: Annual PE Intake Note: Pt is here today for PE. Allergies amoxicillin Allergy (Unknown, Verified 03/30/24 09:25) itchy throat codeine Allergy (Unknown, Verified 03/30/24 09:25) itchy throat penicillin V Allergy (Unknown, Verified 03/30/24 09:25) itchy throat Medication List - Last Reconciled 03/30/24 by Chelsea Ly MD ammonium lactate 12% 1 appl topical DAILY empagliflozin-linagliptin 25-5 mg (Glyxambi) 1 tab PO DAILY fluconazole 150 mg PO Q3D lidocaine 1.8% patches topical lisinopril 2.5 mg PO DAILY metformin ER 1,000 mg (2 x 500 mg) PO BID Mounjaro (tirzepatide) 12.5 mg (0.5 mL) subcut QWEEK NS rosuvastatin (Crestor) 10 mg PO DAILY Tobacco use date assessed: 03/30/24 Dental Screening Dental Screen Date: 03/30/24 Did you have a dental visit in the last 12 months?: Yes Did you have a dental problem in the last 6 months where you did not have access to dental care?: No Was dental information given to patient?: Patient has dentist HPI Annual PE HPI Details Pt presents for PE. Patient follows up with pain management for chronic lower back pain and SI joint pain. She is planning to start exercising when she feels better [facility] Medical History Obesity Lower back pain Annual physical exam Hyperlipidemia DM type 2 (diabetes mellitus, type 2) Mammogram normal Normal Pap smear Lumbar disc herniation Diabetic eye exam Sleep apnea Carpal tunnel syndrome Surgical History History of carpal tunnel surgery Family History Mother No problems noted. Father No problems noted. Brother No problems noted. Brother No problems noted. Sister No problems noted. Sister No problems noted. Daughter No problems noted. Social History Household Members Other:: , 12 y/o daughter Housing: House Alcohol intake: current Alcohol intake frequency: holidays/special occasions only Patient Tobacco Use Status: Never used Tobacco e-Cigarette/Vaping Use: Never Used service: No Current occupational status: employed Cognitive needs: No Hearing needs: No Vision needs: Yes Questionnaire Thrive Questionnaire Date Thrive assessed: 01/06/24 I am a: Patient What is your living situation today?: I have a steady place to live Within the past 12 months, did the food you bought not last and you didn't have the money to get more?: Never true Within the past 12 months, did you worry whether your food would run out before you got money to buy more?: Never true Do you have trouble paying for medicines?: No Do you have trouble getting transportation to medical appointments?: No Do you have trouble paying your heating and electricity bill?: No Do you have trouble taking care of your child, family member or friend?: No Do you have trouble with day-to-day activities such as bathing, preparing meals, shopping, managing finances, etc.?: No Are you currently unemployed and looking for a job?: No Are you interested in more education?: No Please select the resources that you would like help with: None Currently or been in a relationship where the following occur: No concerns reported THRIVE Score: 0 AUDIT C Alcohol Use Questionnaire (AUDIT-C) 3. How often do you have six or more drinks on one occasion?: Never Total Score: 0 DAKOTA-7 AMB Questionnaire DAKOTA-7 Date DAKOTA - 7 assessed: 06/06/23 Source: Developed by Drs. Uche Stokes, Elizabeth Turner, Armando Barrios and colleagues, with an educational j[place] from [employer]. Review of Systems Const All systems reviewed & are unremarkable except as noted in HPI and below Reports no additional complaints Eyes Reports no additional complaints ENT Reports no additional complaints Card Reports no additional complaints Resp Reports no additional complaints GI Reports no additional complaints Physical exam (Primary Care) Vital Signs: Last Vital Signs Pulse 86 03/30/24 09:23 BP 116/74 03/30/24 09:23 Pulse Ox 97 03/30/24 09:23 Oxygen Delivery Method Room Air 03/30/24 09:23 BMI result Body Mass Index 34.0 Tobacco/Smoking Status: Tobacco use Status Tobacco use date assessed 03/30/24 03/30/24 09:28 Patient Tobacco Use Status Never used Tobacco 03/30/24 09:24 e-Cigarette/Vaping Use Never Used 03/30/24 09:24 Thrive Assessment: Date of Thrive Assessment Date Thrive assessed 01/06/24 03/30/24 09:24 Currently or been in a relationship where the following occur: No concerns reported Const General: no acute distress HENMT Head: Yes normal to inspection Ears: hearing grossly normal bilaterally Face and sinus: Yes normal facial exam Mouth: Normal oral and palatal mucosa present Throat: Yes posterior oropharynx normal Eyes General: appearance normal, both eyes and all related structures Neck Neck: Yes no lymphadenopathy and Yes supple Resp Effort & Inspection: normal respiratory effort Auscultation: clear to auscultation bilaterally Cardio Rhythm: regular rhythm Heart sounds: S1 normal heart sound present and S2 normal heart sound present GI Inspection: Yes normal to inspection Palpation (GI): Soft to palpation Percussion: Yes normal to percussion Auscultation: normal bowel sounds Coding Level of Care Code Est Pt Prev Care 40-64y(40253) Diagnoses DM type 2 (diabetes mellitus, type 2) E11.9 Hyperlipidemia E78.5 Annual physical exam Z00.00 Microalbuminuria R80.9 Assessment & Plan Assessment & Plan (1) DM type 2 (diabetes mellitus, type 2): Code(s): E11.9 - Type 2 diabetes mellitus without complications Category: Medical Plan: A1c is 6.8, ADA diet increase physical activity discussed with the patient continue current medication increase Mounjaro to 15 mg weekly. Follow-up in 4 months with a fasting labs before (2) Hyperlipidemia: Code(s): E78.5 - Hyperlipidemia, unspecified Category: Medical Plan: Continue statin (3) Annual physical exam: Code(s): Z00.00 - Encounter for general adult medical examination without abnormal findings Category: Medical Plan: Well-balanced diet regular physical activity discussed with the patient (4) Microalbuminuria: Code(s): R80.9 - Proteinuria, unspecified Category: Medical Plan: Continue lisinopril and monitor microalbumin Orders: Orders Hemoglobin A1c 4 Months E11.9 - Type 2 diabetes mellitus without complications, E78.5 - Hyperlipidemia, unspecified, R80.9 - Proteinuria, unspecified, Z00.00 - Encounter for general adult medical examination without abnormal findings Comprehensive [place]. Panel Fast 4 Months E11.9 - Type 2 diabetes mellitus without complications, E78.5 - Hyperlipidemia, unspecified, R80.9 - Proteinuria, unspecified, Z00.00 - Encounter for general adult medical examination without abnormal findings Lipid Panel 4 Months E11.9 - Type 2 diabetes mellitus without complications, E78.5 - Hyperlipidemia, unspecified, R80.9 - Proteinuria, unspecified, Z00.00 - Encounter for general adult medical examination without abnormal findings Microalbumin, Random (w Creat) 4 Months E11.9 - Type 2 diabetes mellitus without complications, E78.5 - Hyperlipidemia, unspecified, R80.9 - Proteinuria, unspecified, Z00.00 - Encounter for general adult medical examination without abnormal findings Complete Blood Count Auto Diff 4 Months E11.9 - Type 2 diabetes mellitus without complications, E78.5 - Hyperlipidemia, unspecified, R80.9 - Proteinuria, unspecified, Z00.00 - Encounter for general adult medical examination without abnormal findings Medications: New Mounjaro (tirzepatide) 15 mg (0.5 mL) subcut QWEEK 6 mL 3RF NS Mounjaro (tirzepatide) 15 mg (0.5 mL) subcut QWEEK 6 mL 3RF NS
== END 2024-03-30 10:17 | disposition home or self-care (01) ==
PROVIDERS: PCP Internal Medicine; Visit Provider Internal Medicine
DX: E11.9 Type 2 diabetes mellitus without complications (principal); E78.5 Hyperlipidemia, unspecified; Z00.00 Encounter for general adult medical examination without abnormal findings; R80.9 Proteinuria, unspecified

== ENCOUNTER 2024-08-01 09:23 | Outpatient (AMB) | payer BC, SELFPAY ==
--- NOTE | 2024-08-01 09:49 | A.OFFPC_ITS ---
Vital Signs 08/01/24 09:50 Height 5 ft 3 in Weight 195 lb BMI 34.5 BP 118/78 Blood Pressure Location Lt brachial Position Sitting Respiration 18 Pulse 88 Pulse Source Pulse Oximeter Temp 98.8 F Temp Source Oral Pulse Oximetry (%) 96 Oxygen Delivery Method Room Air Intake Visit Reasons: 4m follow up Intake Note: Pt is here today for 4 months follow up visit on labs. Allergies amoxicillin Allergy (Unknown, Verified 08/01/24 09:51) itchy throat codeine Allergy (Unknown, Verified 08/01/24 09:51) itchy throat penicillin V Allergy (Unknown, Verified 08/01/24 09:51) itchy throat Tobacco use date assessed: 08/01/24 Dental Screening Dental Screen Date: 08/01/24 Did you have a dental visit in the last 12 months?: Yes Did you have a dental problem in the last 6 months where you did not have access to dental care?: No Was dental information given to patient?: Patient has dentist HPI 4m follow up HPI Details Pt presents for DM 2, hyperlipid, obesity, stable on meds. [facility] Medical History Obesity Lower back pain Annual physical exam Hyperlipidemia DM type 2 (diabetes mellitus, type 2) Mammogram normal Normal Pap smear Lumbar disc herniation Diabetic eye exam Sleep apnea Carpal tunnel syndrome Surgical History History of carpal tunnel surgery Family History Mother No problems noted. Father No problems noted. Brother No problems noted. Brother No problems noted. Sister No problems noted. Sister No problems noted. Daughter No problems noted. Social History Household Members Other:: , 12 y/o daughter Housing: House Alcohol intake: current Alcohol intake frequency: holidays/special occasions only Patient Tobacco Use Status: Never used Tobacco e-Cigarette/Vaping Use: Never Used service: No Current occupational status: employed Cognitive needs: No Hearing needs: No Vision needs: Yes Questionnaire PHQ-9 Over the last 2 weeks, how often have you been bothered by any of the following problems? 1. Little interest or pleasure in doing things: not at all 2. Feeling down, depressed, or hopeless: not at all 3. Trouble falling or staying asleep, or sleeping too much: several days 4. Feeling tired or having little energy: not at all 5. Poor appetite or overeating: not at all 6. Feeling bad about yourself - or that you are a failure or have let yourself or your family down: not at all 7. Trouble concentrating on things, such as reading the newspaper or watching te levision: not at all 8. Moving or speaking so slowly that other people could have noticed. Or the opposite - being so fidgety or restless that you have been moving around a lot more than usual: not at all 9. Thoughts that you would be better off or of hurting yourself in some way: not at all Total score: 1 Depression Screening Interpretation: Negative Depression Screening Done: Yes 39500 - PHQ-9 Billing: Yes Source: Developed by Drs. Uche Stokes, Elizabeth Turner, Armando Barrios and colleagues, with an educational [place] from [email or web address] Thrive Questionnaire Date Thrive assessed: 08/01/24 I am a: Patient What is your living situation today?: I have a steady place to live Within the past 12 months, did the food you bought not last and you didn't have the money to get more?: Never true Within the past 12 months, did you worry whether your food would run out before you got money to buy more?: Never true Do you have trouble paying for medicines?: No Do you have trouble getting transportation to medical appointments?: No Do you have trouble paying your heating and electricity bill?: No Do you have trouble taking care of your child, family member or friend?: No Do you have trouble with day-to-day activities such as bathing, preparing meals, shopping, managing finances, etc.?: No Are you currently unemployed and looking for a job?: No Are you interested in more education?: No Please select the resources that you would like help with: None Currently or been in a relationship where the following occur: No concerns reported THRIVE Score: 0 AUDIT C Alcohol Use Questionnaire (AUDIT-C) 1. How often do you have a drink containing alcohol?: Never 3. How often do you have six or more drinks on one occasion?: Never Total Score: 0 DAKOTA-7 AMB Questionnaire DAKOTA-7 Date DAKOTA - 7 assessed: 08/01/24 Feeling nervous, anxious, or on edge: 0 = Not at all Not being able to stop or control worryin = Not at all Worrying too much about different things: 0 = Not at all Trouble relaxin = Several days Being so restless that it is hard to sit still: 0 = Not at all Becoming easily annoyed or irritable: 1 = Several days Feeling afraid as if something awful might happen: 0 = Not at all Total DAKOTA-7 score (0-4 normal; 5-9 mild; 10-14 moderate; 15-21 severe): 2 Source: Developed by Drs. Uche Stokes, Elizabeth Turner, Armando Barrios and colleagues, with an educational [place] from [email or web address] DAKOTA-7 Assessment Billing DAKOTA-7 Assessment Tool: DAKOTA-7 Assessment 27779 Review of Systems Const All systems reviewed & are unremarkable except as noted in HPI and below Reports no additional complaints Eyes Reports no additional complaints ENT Reports no additional complaints Card Reports no additional complaints Resp Reports no additional complaints GI Reports no additional complaints Reports no additional complaints Physical exam (Primary Care) Vital Signs: Last Vital Signs Temp 98.8 F 08/01/24 09:50 Pulse 88 08/01/24 09:50 Resp 18 08/01/24 09:50 BP 118/78 08/01/24 09:50 Pulse Ox 96 08/01/24 09:50 Oxygen Delivery Method Room Air 08/01/24 09:50 BMI result Body Mass Index 34.5 Tobacco/Smoking Status: Tobacco use Status Tobacco use date assessed 08/01/24 08/01/24 09:55 Patient Tobacco Use Status Never used Tobacco 08/01/24 09:50 e-Cigarette/Vaping Use Never Used 08/01/24 09:50 PHQ-9: PHQ-9 Score PHQ-9: Total score 1 08/01/24 09:55 Depression Screening Interpretation: Negative Thrive Assessment: Date of Thrive Assessment Date Thrive assessed 08/01/24 08/01/24 09:55 Currently or been in a relationship where the following occur: No concerns reported Const General: no acute distress HENMT Head: Yes normal to inspection Face and sinus: Yes normal facial exam Throat: Yes posterior oropharynx normal Eyes General: appearance normal, both eyes and all related structures Neck Neck: Yes no lymphadenopathy and Yes supple Resp Effort & Inspection: normal respiratory effort Auscultation: clear to auscultation bilaterally Cardio Rhythm: regular rhythm Heart sounds: S1 normal heart sound present and S2 normal heart sound present GI Inspection: Yes normal to inspection Palpation (GI): Soft to palpation Percussion: Yes normal to percussion Coding Level of Care Code Est Pt Level 4 (29269) Diagnoses HTN (hypertension) I10 DM type 2 (diabetes mellitus, type 2) E11.9 Hyperlipidemia E78.5 Additional Codes DAKOTA-7 Assessment Billing - DAKOTA-7 Assessment Tool: DAKOTA-7 Assessment 00446 ([id number]) PHQ-9 - 13380 - PHQ-9 Billing: Yes ([id number]) Assessment & Plan Assessment & Plan (1) HTN (hypertension): Code(s): I10 - Essential (primary) hypertension Category: Medical Plan: cont Lisinopril (2) DM type 2 (diabetes mellitus, type 2): Code(s): E11.9 - Type 2 diabetes mellitus without complications Category: Medical Plan: A1C is 6.3, cont meds, ADA diet regular exercise, follow-up in 4 months (3) Hyperlipidemia: Code(s): E78.5 - Hyperlipidemia, unspecified Category: Medical Plan: Continue statin Orders: Orders Hemoglobin A1c 4 Months E11.9 - Type 2 diabetes mellitus without complications Comprehensive [place]. Panel Fast 4 Months E11.9 - Type 2 diabetes mellitus without complications
[2024-08-01 09:50] VITALS: BP 118/78; PULSE 88; RESP 18; TEMP 37.1; O2SAT 96; BMI 34.5
--- OUTSIDE RECORDS SUMMARY | 2024-08-01 10:20 | XMS_ITS | Clinical Summary ---
Author Organization [facility] Address [address] [place] [id number] Phone [email or web address] Care Team Providers Care Slasher Hand Name Role Phone Unavailable Primary Care Provider Unavailabl e Social History Tobacco Use Types Packs/Day Years Used Date Smoking Tobacco: Never Assessed Intimate Partner Violence Answer Date R ecorded Insults You Not on file 07/29/2020 Threatens You Not on file 07/29/2020 Screams at You Not on file 07/29/2020 Physically Hurt Not on file 07/29/2020 Intimate Partner Violence Score Not on file 07/29/2020 Stress Answer Date Recorded Stress in your Life Not on file 02/20/2024 Dealing with Stress 3 02/20/2024 Comments Unknown Sex and Gender Information Value Date Recorded Sex Assigned at Not on file Legal Sex Female 11:03 AM CDT Gender Identity Not on file Sexual Orientation Not on file Plan of Treatment Health Maintenance Due Date Last Done Comments Dental Cleaning/Exam 1970 HIV Screening 1972 Hepatitis C Screening 1972 Cervical Cancer Screening 1988 Annual Preventive Exam 01/24/1990 Hep B Infection Screening - Triple Screen 01/24/1990 Hepatitis B Immunization (1 of 3 - 19+ 3-dose series) 01/24/1991 Tetanus Diphtheria and Pertu ssis Immunization (1 - Tdap) 01/24/1991 Breast Cancer Screening 01/24/2002 Colorectal Cancer Screening 01/24/2002 Zoster Immunization (1 of 2) 01/24/2022 Covid-19 Immunization (1 - 2 25 season) 2023 Influenza Immunization (Seas on Ended) 2024 HIB Immunization Aged Out No longer e ligible based on patient's age to complete this topic HPV Immunization Aged Out No longer e ligible based on patient's age to complete this topic Hepatitis A Immunization Aged Out No longer eligible based on patient's age to complete this topic Pneumococcal: Ped (0 to 5 Yr s) and At-Risk Member (6 to 64 Yrs) Aged Out No longer e ligible based on patient's age to complete this topic Polio Immunization Aged Out No longer eligible based on patient's age to complete this topic
--- OUTSIDE RECORDS SUMMARY | 2024-08-01 10:20 | XMS_ITS | Clinical Summary ---
Author Organization [facility] Address [address] [place] [address] Care Team Providers Care Transformer Inspector Name Role Phone Chelsea Ly MD Primary Care Provider [phone] Allergies Active Allergy Reactions Criticality Noted Date Comments Amoxicillin Rash/Dermatitis Low 06/02/2023 Codeine Rash/Dermatitis Low 06/02/2023 Penicillins Rash/Dermatitis Low 06/02/2023 Medications metFORMIN (FORTAMET) 1000 MG (OSM) 24 hr tablet 03/31/2023 Active Glyxambi 25-5 MG per tablet 04/25/2023 Activ e rosuvastatin (CRESTOR) 10 MG tablet 03/26/2023 Active Ozempic, 2 MG/DOSE, 8 MG/3ML prefilled pen injection 04/26/2023 Active HYDROcodone-sugar taminophen (NORCO) 5-325 mg per tablet 05/06/2023 Activ e proMETHAZINE-de xtromethorphan (proMETHAZINE-D M) 6.25-15 MG/5ML syrupIndication s:Viral URI with cough Take 5 mL by mouth 4 times daily (every 6 hours) as needed for cough. 120 mL 06/02/2023 Active benzonatate (TESSALON) 200 MG capsuleIndicati ons:Viral URI with cough Take 1 capsule (200 mg total) by mouth 3 (three) times a day as needed for cough. 20 capsule 06/02/2023 Active Active Problems No known active problems Social History Tobacco Use Types Packs/Day Years Used Date Smoking Tobacco: Never Assessed Comments Unknown Sex and Gender Information Value Date Recorded Sex Assigned at Female 06/02/2023 7:58 AM EST Legal Sex Female 2:41 PM EDT Gender Identity Female 06/02/2023 7:58 AM EST Sexual Orientation Heterosexual (straight) 06/02 7:58 AM EST Last Filed Vital Signs Vital Sign Reading Time Taken Comments Blood Pressure 124/82 06/02/2023 8:20 AM EST Pulse 76 06/02/2023 8:20 AM EST Temperature 36.8 ??C (98.3 ??F) 06/02/2023 8:20 AM ES T Respiratory Rate - - Oxygen Saturation 97% 06/02/2023 8:20 AM EST Inhaled Oxygen Concentration - - Weight - - Height - - Body Mass Index - - Plan of Treatment Health Maintenance Due Date Last Done Comments Hepatitis C Virus Screening 1972 HIV Screening 01/24/1985 DTaP/Tdap/Td Vaccines (1 - Tdap) 01/24/1991 Hepatitis B Vaccines (1 of 3 - 19+ 3-dose series) 01/24/1991 Pap Smear (Ages 21-65) 01/24/1993 Colonoscopy 01/24/2017 Pneumococcal Vaccines 50+ (1 of 1 - PCV) 01/24/2022 Zoster (Shingles) Vaccine (1 of 2) 01/24/2022 COVID-19 Vaccine ( - 2023- season) 2023 01/14/2023, 08/29/2020, 08/08/2020 Mammogram 11/14/2025 11/15/2023, 10/17, 11/25/2021, Additional history exists Influenza Vaccine Completed 01/01/2024 Pneumococcal Vaccine: Pediatric (0-5 Years) and At-Risk Patients (6 to 49 Years) Aged Out No longer eligible based on patient's age to complete this topic Procedures Procedure Name Priority Date/Time Associated Diagnosis Comments MG SCREENING DIGITAL BREAST EDDIE- BILATERAL Routine 11/15/2023 8:52 AM EDT from Last 3 Months or Most Recently Relevant to Health Maintenance Results * MG SCREENING DIGITAL BREAST EDDIE- BILATERAL (11/15/2023 8:52 AM EDT) Anatomical Region Laterality Modality Other 11/15/2023 8:45 AM EDT 11/15/2023 8:45 AM EDT Narrative 12/24/2023 9:46 AM EDT HISTORY: Patient is 53 years old and is seen for screening. The patient has no personal history of breast or ovarian cancer. The patient has no family history of breast cancer. FILMS COMPARED: The present examination has been compared to prior imaging studies dated 11/10/2020, 11/11/2021 and 11/12/2022. EDDIE STATEMENT: Computer-aided detection was utilized by the radiologist in the interpretation of this examination. 3D tomosynthesis digital mammographic images were obtained using standard projections. MAMMOGRAM FINDINGS: There are scattered fibroglandular densities. (ACR BIRADS density Category b) * There is a new oval mass seen in the left breast lower outer quadrant at 4 oclock located 9 centimeters from the nipple. In the right breast, no suspicious masses, calcifications or other abnormalities are seen. IMPRESSION: New mass in the left breast requires additional evaluation. Additional imaging (left ultrasound) is recommended. The patient will receive a lay summary of the results of this breast imaging exam. Lay summaries for mammography examinations will also identify the patients personal breast tissue composition as required by state law. BIRADS Category 0: Incomplete: Needs Additional Imaging Evaluation Thank you for referring your patient to us, Jordan Aguilera MD [phone] (Electronically Signed - 12/24/2023 09:46) Copy: CODY COX MD [facility] [address] [place] [id number] CHELSEA LY MD [facility] [address] [facility] [place] [address] Procedure Note Jordan Aguilera MD - 12/24/2023 HISTORY: Patient is 53 years old and is seen for screening. The patient has no personal history of breast or ovarian cancer. The patient has no family history of breast cancer. FILMS COMPARED: The present examination has been compared to prior imaging studies dated11/10/2020, 11/11/2021 and 11/12/2022. EDDIE STATEMENT: Computer-aided detection was utilized by the radiologist in theinterpretation of this examination. 3D tomosynthesis digital mammographic images were obtained using standardprojections. MAMMOGRAM FINDINGS: There are scattered fibroglandular densities. (ACR BIRADS density Categoryb) * There is a new oval mass seen in the left breast lower outer quadrant at 4oclock located 9 centimeters from the nipple. In the right breast, no suspicious masses, calcifications or otherabnormalities are seen. IMPRESSION: New mass in the left breast requires additional evaluation. Additionalimaging (left ultrasound) is recommended. The patient will receive a lay summary of the results of this breastimaging exam. Lay summaries for mammography examinations will alsoidentify the patients personal breast tissue composition as required bystate law. BIRADS Category 0: Incomplete: Needs Additional Imaging Evaluation Thank you for referring your patient to us, Jordan Aguilera MD [phone] (Electronically Signed - 12/24/2023 09:46) Copy: CODY COX MD [facility] [place] [address] CHELSEA LY MD [facility] [address] [place] [address] us Rad-Self Referred IMG LEGACY PROCEDURES Final Result from Last 3 Months or Most Recently Relevant to Health Maintenance Insurance [facility] CIGNA HMO [facility] [employer] Care Teams Transformer Inspector Relationship Specialty Start Date End Date Chelsea Ly MD [address] [place] [id number] PCP - General 06/02/23
--- OUTSIDE RECORDS SUMMARY | 2024-08-01 10:20 | XMS_ITS | Encounter Summary ---
Author Organization [facility] Address [address] [place] [address] Care Team Providers Care Turning Machine Operator Name Role Phone Chelsea Ly MD Primary Care Provider [phone] Encounter Details Date Type Department Care Team (Late st Contact Info) Description 06/02/2023 8:31 AM EST Hospital Encounter [facility] [address] [place] [address] Social History Tobacco Use Types [...] on filedocumented in this encounter Care Teams Turning Machine Operator Relationship Specialty Start Date End Date Chelsea Ly MD [address] [place] [address] PCP - General 06/02/23 documented as of this encounter
--- OUTSIDE RECORDS SUMMARY | 2024-08-01 10:20 | XMS_ITS | Encounter Summary ---
Author Organization [facility] Address [address] [place] [address] Care Team Providers Care Client Relations Representative Name Role Phone Chelsea Ly MD Primary Care Provider [phone] Encounter Details Date Type Department Care Team (Late st Contact Info) Description 08/24/2023 Scanned Document [address] [address] Radiology, Scan Social History Tobacco Use Types Packs/Day Years [...] Procedure Name Priority Date/Time Associated Diagnosis Comments HX OUTSIDE ORDER 08/24/2023 documented in this encounter Results * HX OUTSIDE ORDER (08/24/2023) us Scan Radiology HX AMB PROCEDURES Final Result documented in this encounter Visit Diagnoses Not on filedocumented in this encounter Care Teams Client Relations Representative Relationship Specialty Start Date End Date Chelsea Ly MD [address] [place] [address] PCP - General 06/02/23 documented as of this encounter
== END 2024-08-01 10:19 | disposition home or self-care (01) ==
LOC: HO.HMCC 09:24
PROVIDERS: PCP Internal Medicine; Visit Provider Internal Medicine
DX: I10 Essential (primary) hypertension (principal); E11.9 Type 2 diabetes mellitus without complications; E78.5 Hyperlipidemia, unspecified

== ENCOUNTER → 2024-08-01 09:23 | Outpatient (BNVA) | payer BC, SELFPAY | PROVIDERS: PCP Internal Medicine; Visit Provider Internal Medicine | DX: I10 Essential (primary) hypertension (principal); E11.9 Type 2 diabetes mellitus without complications; E78.5 Hyperlipidemia, unspecified; E66.9 Obesity, unspecified; Z68.34 Body mass index [BMI] 34.0-34.9, adult; Z79.899 Other long term (current) drug therapy | CPT/HCPCS: 96127 ==

== ENCOUNTER 2025-01-02 09:48 | Outpatient (AMB) | payer BC, SELFPAY ==
--- OUTSIDE RECORDS SUMMARY | 2023-06-02 09:31 | XMS_ITS | Encounter Summary ---
Author Organization [facility] Address [address] [place] [address] Care Team Providers Care Anatomic Pathologist Name Role Phone Chelsea Ly MD Primary Care Provider [phone] Encounter Details Date Type Department Care Team (Late st Contact Info) Description 06/02/2023 8:31 AM EST Hospital Encounter [facility] [address] [place] [address] Social History Tobacco Use Types [...] on filedocumented in this encounter Care Teams Anatomic Pathologist Relationship Specialty Start Date End Date Chelsea Ly MD [address] [place] [address] PCP - General 06/02/23 documented as of this encounter
[2025-01-02 10:02] VITALS: BP 104/70; PULSE 94; RESP 19; TEMP 36.9; O2SAT 97; BMI 33.7
--- NOTE | 2025-01-02 10:02 | MHC.PC.OV ---
Vital Signs 01/02/25 10:02 Height 5 ft 3 in Weight 190 lb BMI 33.7 BP 104/70 Blood Pressure Location Lt brachial Position Sitting Respiration 19 Pulse 94 Pulse Source Pulse Oximeter Temp 98.4 F Temp Source Oral Pulse Oximetry (%) 97 Oxygen Delivery Method Room Air Intake Visit Reasons: follow up Intake Note: Pt is here today for a follow up visit on DM and labs. Allergies amoxicillin Allergy (Unknown, Verified 01/02/25 10:11) itchy throat codeine Allergy (Unknown, Verified 01/02/25 10:11) itchy throat penicillin V Allergy (Unknown, Verified 01/02/25 10:11) itchy throat Medication List - Last Reconciled 01/02/25 by Chelsea Ly MD ammonium lactate 12% 1 appl topical DAILY empagliflozin-linagliptin 25-5 mg (Glyxambi) 1 tab PO DAILY fluconazole 150 mg PO Q3D lidocaine 1.8% patches topical lisinopril 2.5 mg PO DAILY metformin ER 1,000 mg (2 x 500 mg) PO BID Mounjaro (tirzepatide) 15 mg (0.5 mL) subcut QWEEK NS rosuvastatin (Crestor) 10 mg PO DAILY Tobacco use date assessed: 01/02/25 Dental Screening Dental Screen Date: 08/01/24 HPI follow up HPI Details Pt presents for f/u DM 2, HTN, hyperlipid, stable on meds. PFSH Medical History Obesity Lower back pain Annual physical exam Hyperlipidemia DM type 2 (diabetes mellitus, type 2) Mammogram normal Normal Pap smear Lumbar disc herniation Diabetic eye exam Sleep apnea Carpal tunnel syndrome Surgical History History of carpal tunnel surgery Family History Mother No problems noted. Father No problems noted. Brother No problems noted. Brother No problems noted. Sister No problems noted. Sister No problems noted. Daughter No problems noted. Social History Household Members Other:: , 12 y/o daughter Housing: House Alcohol intake: current Alcohol intake frequency: holidays/special occasions only Patient Tobacco Use Status: Never used Tobacco e-Cigarette/Vaping Use: Never Used service: No Current occupational status: employed Cognitive needs: No Hearing needs: No Vision needs: Yes Questionnaire PHQ-9 Over the last 2 weeks, how often have you been bothered by any of the following problems? 1. Little interest or pleasure in doing things: not at all 2. Feeling down, depressed, or hopeless: not at all 3. Trouble falling or staying asleep, or sleeping too much: several days 4. Feeling tired or having little energy: not at all 5. Poor appetite or overeating: not at all 6. Feeling bad about yourself - or that you are a failure or have let yourself or your family down: not at all 7. Trouble concentrating on things, such as reading the newspaper or watching television: not at all 8. Moving or speaking so slowly that other people could have noticed. Or the opposite - being so fidgety or restless that you have been moving around a lot more than usual: not at all 9. Thoughts that you would be better off or of hurting yourself in some way: not at all Total score: 1 Depression Screening Interpretation: Negative Depression Screening Done: Yes Source: Developed by Drs. Uche Stokes, Elizabeth Turner, Armando Barrios and colleagues, with an educational j[place] from [employer]. Thrive Questionnaire Date Thrive assessed: 07/25/24 I am a: Patient What is your living situation today?: I have a steady place to live Within the past 12 months, did the food you bought not last and you didn't have the money to get more?: Never true Within the past 12 months, did you worry whether your food would run out before you got money to buy more?: Never true Do you have trouble paying for medicines?: No Do you have trouble getting transportation to medical appointments?: No Do you have trouble paying your heating and electricity bill?: No Do you have trouble taking care of your child, family member or friend?: No Do you have trouble with day-to-day activities such as bathing, preparing meals, shopping, managing finances, etc.?: No Are you currently unemployed and looking for a job?: No Are you interested in more education?: No Please select the resources that you would like help with: None Currently or been in a relationship where the following occur: No concerns reported THRIVE Score: 0 AUDIT C Alcohol Use Questionnaire (AUDIT-C) 2. How many drinks containing alcohol do you have on a typical day when you are drinking?: 1 or 2 3. How often do you have six or more drinks on one occasion?: Never Total Score: 0 DAKOTA-7 AMB Questionnaire DAKOTA-7 Date DAKOTA - 7 assessed: 08/01/24 Feeling nervous, anxious, or on edge: 0 = Not at all Not being able to stop or control worryin = Not at all Worrying too much about different things: 0 = Not at all Trouble relaxin = Several days Being so restless that it is hard to sit still: 0 = Not at all Becoming easily annoyed or irritable: 1 = Several days Feeling afraid as if something awful might happen: 0 = Not at all Total DAKOTA-7 score (0-4 normal; 5-9 mild; 10-14 moderate; 15-21 severe): 2 Source: Developed by Drs. Uche Stokes, Elizabeth Turner, Armando Barrios and colleagues, with an educational jamaica from [employer]. Review of Systems Const All systems reviewed & are unremarkable except as noted in HPI and below Reports no additional complaints Eyes Reports no additional complaints ENT Reports no additional complaints Card Reports no additional complaints Resp Reports no additional complaints GI Reports no additional complaints Reports no additional complaints Physical exam (Primary Care) Vital Signs: Last Vital Signs Temp 98.4 F 01/02/25 10:02 Pulse 94 01/02/25 10:02 Resp 19 01/02/25 10:02 BP 104/70 01/02/25 10:02 Pulse Ox 97 01/02/25 10:02 Oxygen Delivery Method Room Air 01/02/25 10:02 BMI result Body Mass Index 33.7 Tobacco/Smoking Status: Tobacco use Status Tobacco use date assessed 01/02/25 01/02/25 10:13 Patient Tobacco Use Status Never used Tobacco 01/02/25 10:02 e-Cigarette/Vaping Use Never Used 01/02/25 10:02 PHQ-9: PHQ-9 Score PHQ-9: Total score 1 01/02/25 10:17 Depression Screening Interpretation: Negative Thrive Assessment: Date of Thrive Assessment Date Thrive assessed 07/25/24 01/02/25 10:02 Currently or been in a relationship where the following occur: No concerns reported Const General: no acute distress HENMT Head: Yes normal to inspection Ears: hearing grossly normal bilaterally Mouth: Normal oral and palatal mucosa present Throat: Yes posterior oropharynx normal Eyes General: appearance normal, both eyes and all related structures Resp Effort & Inspection: normal respiratory effort Auscultation: clear to auscultation bilaterally Cardio Rhythm: regular rhythm Heart sounds: S1 normal heart sound present and S2 normal heart sound present GI Inspection: Yes normal to inspection Coding Level of Care Code Est Pt Level 4 (86118) Diagnoses DM type 2 (diabetes mellitus, type 2) E11.9 Hyperlipidemia E78.5 HTN (hypertension) I10 Assessment & Plan Assessment & Plan (1) DM type 2 (diabetes mellitus, type 2): Code(s): E11.9 - Type 2 diabetes mellitus without complications Category: Medical Plan: A1C is 6.4, continue ADA diet regular physical activity decrease caloric intake and weight loss discussed with the patient. She will continue current medications return for physical in March (2) Hyperlipidemia: Code(s): E78.5 - Hyperlipidemia, unspecified Category: Medical Plan: Continue statin (3) HTN (hypertension): Code(s): I10 - Essential (primary) hypertension Category: Medical Plan: Continue lisinopril Orders: Orders Complete Blood Count Auto Diff 3 Months E11.9 - Type 2 diabetes mellitus without complications, E78.5 - Hyperlipidemia, unspecified, I10 - Essential (primary) hypertension Microalbumin, Random (w Creat) 3 Months E11.9 - Type 2 diabetes mellitus without complications, E78.5 - Hyperlipidemia, unspecified, I10 - Essential (primary) hypertension Comprehensive [place]. Panel Fast 3 Months E11.9 - Type 2 diabetes mellitus without complications, E78.5 - Hyperlipidemia, unspecified, I10 - Essential (primary) hypertension Lipid Panel 3 Months E11.9 - Type 2 diabetes mellitus without complications, E78.5 - Hyperlipidemia, unspecified, I10 - Essential (primary) hypertension Hemoglobin A1c 3 Months E11.9 - Type 2 diabetes mellitus without complications, E78.5 - Hyperlipidemia, unspecified, I10 - Essential (primary) hypertension TSH reflex Free T4 3 Months E11.9 - Type 2 diabetes mellitus without complications, E78.5 - Hyperlipidemia, unspecified, I10 - Essential (primary) hypertension UA w Microscopic 3 Months E11.9 - Type 2 diabetes mellitus without complications, E78.5 - Hyperlipidemia, unspecified, I10 - Essential (primary) hypertension
--- OUTSIDE RECORDS SUMMARY | 2025-01-02 11:38 | XMS_ITS | Clinical Summary ---
Author Organization [facility] Address [address] [place] [address] Care Team Providers Care Bilingual Patient Support Caseworker Name Role Phone Chelsea Ly MD Primary Care Provider [phone] Allergies Active Allergy Reactions Criticality Noted Date [...] Active Active Problems No known active problems Encounters Date Type Department Care Team Description 11/19/2024 Orders Only [facility] [address] [place] [address] Marylu Duarte MD from Last 3 Months Social History Tobacco Use Types Packs/Day Years [...] 76 06/02/2023 8:20 AM EST Temperature 36.8 C (98.3 F) 06/02/2023 8:20 AM EST Respiratory Rate - - Oxygen Saturation 97% [...] Zoster (Shingles) Vaccine (1 of 2) 01/24/2022 Influenza Vaccine 11/16/2024 01/01/2024 COVID-19 Vaccine (4 - 2024-2 6 season) 2024 01/14/2023, 08/29/2020, 08/08/2020 Mammogram 11/19/2026 11/19/2024, 10/18, 11/12/2022, Additional history exists Procedures Procedure Name Priority Date/Time Associated Diagnosis Comments MG SCREENING DIGITAL BREAST EDDIE- BILATERAL Routine 11/19/2024 9:38 AM EDT from Last 3 Months Results * MG SCREENING DIGITAL BREAST EDDIE- BILATERAL (11/19/2024 9:38 AM EDT) Anatomical Region Laterality Modality Other 11/19/2024 9:30 AM EDT 11/19/2024 9:30 AM EDT Narrative 11/20/2024 4:05 PM EDT EXAMINATION: MM SCREENING DIGITAL BREAST TOMOSYNTHESIS, BILATERAL CLINICAL INFORMATION: Routine annual screening mammography. COMPARISON: [facility] prior imaging. TECHNIQUE: Examination was performed using full breast technique. Tomosynthesis views of both breasts were obtained at 1 mm increments. Computer-aided detection was utilized by the radiologist in the interpretation of this exam. The following digital mammographic views were obtained: Bilateral CC and MLO views FINDINGS: There are scattered areas of fibroglandular density (breast composition category: b). Patients in categories c and d may qualify for supplemental screening exams. Right Breast: There are no suspicious masses, grouped calcifications or architectural distortion. Left Breast: There are no suspicious masses, grouped calcifications or architectural distortion. IMPRESSION: RIGHT BREAST: There is no mammographic evidence of malignancy. LEFT BREAST: There is no mammographic evidence of malignancy. FINAL ASSESSMENT: BI-RADS 1: Negative. RECOMMENDATIONS: Routine annual screening mammography. The patient will receive a lay summary of the results of this breast imaging exam. Lay summaries for mammography examinations will also identify the patients personal breast tissue composition as required by state law. Electronically signed by: Irma Corral MD 11/20/2024 04:05 PM EDT Thank you for referring your patient to us, Irma Garcia [phone] (Electronically Signed - 11/20/2024 16:05) Copy: CODY COX MD [facility] [address] [address] CHELSEA LY MD [facility] [address] [place] [address] Procedure Note Irma Corral MD - 11/20/2024 EXAMINATION: MM SCREENING DIGITAL BREAST TOMOSYNTHESIS, BILATERAL CLINICAL INFORMATION: Routine annual screening mammography. COMPARISON: Relavant prior imaging. TECHNIQUE: Examination was performed using full breast technique. Tomosynthesis viewsof both breasts were obtained at 1 mm increments. Computer-aided detectionwas utilized by the radiologist in the interpretation of this exam. The following digital mammographic views were obtained: Bilateral CC andMLO views FINDINGS: There are scattered areas of fibroglandular density (breast compositioncategory: b). Patients in categories c and d may qualify for supplementalscreening exams. Right Breast: There are no suspicious masses, grouped calcifications orarchitectural distortion. Left Breast: There are no suspicious masses, grouped calcifications orarchitectural distortion. IMPRESSION: RIGHT BREAST: There is no mammographic evidence of malignancy. LEFT BREAST: There is no mammographic evidence of malignancy. FINAL ASSESSMENT: BI-RADS 1: Negative. RECOMMENDATIONS: Routine annual screening mammography. The patient will receive a lay summary of the results of this breastimaging exam. Lay summaries for mammography examinations will alsoidentify the patients personal breast tissue composition as required bystate law. Electronically signed by: Irma Corral MD 11/20/2024 04:05 [facility] Thank you for referring your patient to us, Irma Garcia [phone] (Electronically Signed - 11/20/2024 16:05) Copy: CODY COX MD [facility] [place] [address] ( [phone] CHELSEA LY MD [facility] [address] [place] [address] us Rad-Self Referred [place] [facility] Final Result from Last 3 Months Insurance [facility] [place] [address] [place] [address]O TRAV[employer]ERS [facility] [employer] Care Teams Bilingual Patient Support Caseworker Relationship Specialty Start Date End Date Chelsea Ly MD [address] [place] [id number] PCP - General 06/02/23
--- OUTSIDE RECORDS SUMMARY | 2025-01-02 11:38 | XMS_ITS | Clinical Summary ---
Author Organization [facility] Address [address] [place] [id number] Phone [email or web address] Care Team Providers Care Outside Sales Representative Insurance Name Role Phone Unavailable Primary Care Provider [...] Health Maintenance Due Date Last Done Comments CT Colonography 1972 Cervical Cancer Screening Combo 1972 Colonoscopy 1972 Colorectal Cancer Screening Combo 1972 DNA Cologuard 1972 Dental Cleaning/Exam 1972 FIT or FOBT Test 1972 HIV Screening 1972 HPV / Cotest 1972 Hepatitis C Screening 1972 Pap Testing 1972 Sigmoidoscopy 1972 Annual Preventive Exam 01/24/1990 Hep B Infection Screening - Triple Screen 01/24/1990 Hepatitis B Immunization (1 of 3 - 19+ 3-dose series) 01/24/1991 Tetanus Diphtheria and Pertu ssis Immunization (1 - Tdap) 01/24/1991 Breast Cancer Screening 01/24/2002 Zoster Immunization (1 of 2) 01/24/2022 Covid-19 Immunization (1 - 2 024-25 season) 2024 Influenza Immunization (#1) 2024 HIB Immunization Aged Out No longer [...]
--- OUTSIDE RECORDS SUMMARY | 2025-01-02 11:39 | XMS_ITS | Encounter Summary ---
Author Organization [facility] Address [address] [place] [address] Care Team Providers Care Mold Shop Supervisor Name Role Phone Chelsea Ly MD Primary Care Provider [phone] Encounter Details Date Type Department Care Team (Late st Contact Info) Description 08/24/2023 Scanned Document [address] [address] Radiology, Scan Social History Tobacco [...] on filedocumented in this encounter Care Teams Mold Shop Supervisor Relationship Specialty Start Date End Date Chelsea Ly MD [address] [place] [address] PCP - General 06/02/23 documented as of this encounter
--- OUTSIDE RECORDS SUMMARY | 2025-01-02 11:39 | XMS_ITS ---
Author Name [facility] Organization Unknown History of Medication Use Medication Directions Dispensed Refills Start Date End Date Stat us HYDROcodone-acetaminophen (NORCO) 5-325 mg per tablet 05/06/2023 active Ozempic, 2 MG/DOSE, 8 MG/3ML prefilled pen injection 04/26/2023 a ctive metFORMIN (FORTAMET) 1000 MG (OSM) 24 hr tablet 03/31/2023 active Allergies Allergen Reaction Severity Comment Documented Date Source Statu s PENICILLINS RASH/DERMATITIS 06/02/2023 [facility] a ctive AMOXICILLIN RASH/DERMATITIS [facility] CODEINE RASH/DERMATITIS [facility] Problems Problem Status Onset Date Problem Type Date of Resoluti on Source Viral URI with cough active EncounterDiagnosisAct [facility] Encounters Encounter Type Encounter Reason Primary Diagnosis Location Date Ambulatory [facility] 06/02/2023 Ambulatory Acute upper respiratory infection, unspecified Acute upper respiratory infection, unspecified [facility] 06/02/2023 Care Team Organization Name Specialty Phone Email Start Date End Da te [facility] CODY ROMERO [facility] 12/13/2024 [facility] 08/29/2024 [facility] Chelsea Ly Primary Care 06/02/2023 07/05/19 [facility] Chelsea Ly Primary Care 06/02/2023 [facility] COX Primary Care 06/02/2023 [facility] Not Found Primary Care 05/08/2023 10/05/2024 [facility] 04/12/2023 10/05/2024 [facility] CODY ROMERO Primary Care 04/26/2022
== END 2025-01-02 10:52 | disposition home or self-care (01) ==
LOC: HO.HMCC 09:49
PROVIDERS: PCP Internal Medicine; Visit Provider Internal Medicine
DX: E11.9 Type 2 diabetes mellitus without complications (principal); E78.5 Hyperlipidemia, unspecified; I10 Essential (primary) hypertension

== ENCOUNTER 2025-04-01 08:04 | Outpatient (AMB) | payer BC, SELFPAY ==
--- OUTSIDE RECORDS SUMMARY | 2023-06-02 08:31 | XMS_ITS | Encounter Summary ---
Author Organization [facility] Address [address] [place] [address] Care Team Providers Care Top Collar Baster Name Role Phone Chelsea Ly MD Primary Care Provider [phone] Encounter Details Date Type Department Care Team (Late st Contact Info) Description 06/02/2023 8:31 AM EST Hospital Encounter [facility] [address] [place] [address] Social History Tobacco Use Types Packs/Day Years Used Date Smoking Tobacco: Never Assessed Comments Unknown Sex and Gender Information Value Date Recorded Sex Assigned at Female 06/02/2023 7:58 AM EST Legal Sex Female 2:41 PM EDT Gender Identity Female 06/02/2023 7:58 AM EST Sexual Orientation Heterosexual (straight) 06/02 7:58 AM EST documented as of this encounter Plan of Treatment Not on file documented as of this encounter Procedures Procedure Name Priority Date/Time Associated Diagnosis Comments XR CHEST 2 VIEWS STAT 06/02/2023 8:39 AM EST Viral URI with cough documented in this encounter Results * XR Chest 2 views (06/02/2023 8:39 AM EST) Anatomical Region Laterality Modality Chest Computed Radiogr aphy 06/02/2023 8:40 AM EST Impressions 06/02/2023 8:42 AM EST The lungs appear adequately expanded. No lobar consolidation is identified. No pulmonary edema, pleural effusion, or pneumothorax is seen. The cardiac silhouette appears within normal limits in size. Yves Alicea M.D. Narrative 06/02/2023 8:42 AM EST STUDY: CHEST RADIOGRAPHIC EXAMINATION INDICATION: Cough. COMPARISON: None. TECHNIQUE: Frontal and lateral radiographic views of the chest were performed. FINDINGS: The lungs appear adequately expanded. No lobar consolidation is identified. No pulmonary edema, pleural effusion, or pneumothorax is seen. The cardiac silhouette appears within normal limits in size. No rib fracture is seen. Procedure Note Yves Alicea MD - 06/02/2023 STUDY: CHEST RADIOGRAPHIC EXAMINATION INDICATION: Cough. COMPARISON: None. TECHNIQUE: Frontal and lateral radiographic views of the chest wereperformed. FINDINGS: The lungs appear adequately expanded. No lobar consolidation is identified. No pulmonary edema, pleural effusion, or pneumothorax is seen. The cardiac silhouette appears within normal limits in size. No rib fracture is seen. IMPRESSION: The lungs appear adequately expanded. No lobar consolidation is identified. No pulmonary edema, pleural effusion, or pneumothorax is seen. The cardiac silhouette appears within normal limits in size. Yves Alicea M.D. ROBYN Gu IMG DIAGNOSTIC IMAGING ORDERABL ES Final Result documented in this encounter Visit Diagnoses Not on filedocumented in this encounter Care Teams Top Collar Baster Relationship Specialty Start Date End Date Chelsea Ly MD [address] [place] [address] PCP - General 06/02/23 documented as of this encounter
[2025-04-01 08:12] VITALS: BP 110/76; PULSE 76; TEMP 36.8; O2SAT 98; BMI 33.7
--- NOTE | 2025-04-01 08:12 | MHC.PC.OV ---
Vital Signs 04/01/25 08:12 Height 5 ft 3 in Weight 190 lb BMI 33.7 BP 110/76 Blood Pressure Location Lt brachial Position Sitting Pulse 76 Pulse Source Pulse Oximeter Temp 98.3 F Temp Source Oral Pulse Oximetry (%) 98 Oxygen Delivery Method Room Air Intake Visit Reasons: PE Intake Note: Pt is here today for PE. Allergies amoxicillin Allergy (Unknown, Verified 04/01/25 08:13) itchy throat codeine Allergy (Unknown, Verified 04/01/25 08:13) itchy throat penicillin V Allergy (Unknown, Verified 04/01/25 08:13) itchy throat Medication List - Last Reconciled 04/01/25 by Chelsea Ly MD ammonium lactate 12% 1 appl topical DAILY empagliflozin-linagliptin 25-5 mg (Glyxambi) 1 tab PO DAILY fluconazole 150 mg PO Q3D lidocaine 1.8% patches topical lisinopril 2.5 mg PO DAILY metformin ER 1,000 mg (2 x 500 mg) PO BID Mounjaro (tirzepatide) 15 mg (0.5 mL) subcut QWEEK NS rosuvastatin (Crestor) 10 mg PO DAILY Tobacco use date assessed: 04/01/25 Dental Screening Dental Screen Date: 08/01/24 HPI PE HPI Details Pt presents for PE. [facility] Medical History Obesity Lower back pain Annual physical exam Hyperlipidemia DM type 2 (diabetes mellitus, type 2) Mammogram normal Normal Pap smear Lumbar disc herniation Diabetic eye exam Sleep apnea Carpal tunnel syndrome Surgical History History of carpal tunnel surgery Family History Mother No problems noted. Father No problems noted. Brother No problems noted. Brother No problems noted. Sister No problems noted. Sister No problems noted. Daughter No problems noted. Social History Household Members Other:: , 12 y/o daughter Housing: House Alcohol intake: current Alcohol intake frequency: holidays/special occasions only Patient Tobacco Use Status: Never used Tobacco e-Cigarette/Vaping Use: Never Used service: No Current occupational status: employed Cognitive needs: No Hearing needs: No Vision needs: Yes Questionnaire Thrive Questionnaire Date Thrive assessed: 07/25/24 I am a: Patient What is your living situation today?: I have a steady place to live Within the past 12 months, did the food you bought not last and you didn't have the money to get more?: Never true Within the past 12 months, did you worry whether your food would run out before you got money to buy more?: Never true Do you have trouble paying for medicines?: No Do you have trouble getting transportation to medical appointments?: No Do you have trouble paying your heating and electricity bill?: No Do you have trouble taking care of your child, family member or friend?: No Do you have trouble with day-to-day activities such as bathing, preparing meals, shopping, managing finances, etc.?: No Are you currently unemployed and looking for a job?: No Are you interested in more education?: No Please select the resources that you would like help with: None Currently or been in a relationship where the following occur: No concerns reported THRIVE Score: 0 DAKOTA-7 AMB Questionnaire DAKOTA-7 Date DAKOTA - 7 assessed: 08/01/24 Source: Developed by Drs. Uche Stokes, Elizabeth Turner, Armando Barrios and colleagues, with an educational jamaica from [employer]. Review of Systems Const All systems reviewed & are unremarkable except as noted in HPI and below Reports no additional complaints Eyes Reports no additional complaints ENT Reports no additional complaints Card Reports no additional complaints Resp Reports no additional complaints GI Reports no additional complaints Physical exam (Primary Care) Vital Signs: Last Vital Signs Temp 98.3 F 04/01/25 08:12 Pulse 76 04/01/25 08:12 BP 110/76 04/01/25 08:12 Pulse Ox 98 04/01/25 08:12 Oxygen Delivery Method Room Air 04/01/25 08:12 BMI result Body Mass Index 33.7 Tobacco/Smoking Status: Tobacco use Status Tobacco use date assessed 04/01/25 04/01/25 08:16 Patient Tobacco Use Status Never used Tobacco 04/01/25 08:16 e-Cigarette/Vaping Use Never Used 04/01/25 08:16 Thrive Assessment: Date of Thrive Assessment Date Thrive assessed 07/25/24 04/01/25 08:16 Currently or been in a relationship where the following occur: No concerns reported Const General: no acute distress HENMT Head: Yes normal to inspection Face and sinus: Yes normal facial exam Mouth: Normal oral and palatal mucosa present Eyes General: appearance normal, both eyes and all related structures Neck Neck: Yes no lymphadenopathy and Yes supple Resp Effort & Inspection: normal respiratory effort Auscultation: clear to auscultation bilaterally Cardio Rhythm: regular rhythm Heart sounds: S1 normal heart sound present and S2 normal heart sound present GI Inspection: Yes normal to inspection Palpation (GI): Soft to palpation Percussion: Yes normal to percussion Auscultation: normal bowel sounds Extrem Other: Diabetic foot exam skin is intact monofilament and vibration sensation intact bilaterally General: Yes no clubbing, cyanosis or edema Coding Level of Care Code Est Pt Prev Care 40-64y(47070) Diagnoses HTN (hypertension) I10 Hyperlipidemia E78.5 DM type 2 (diabetes mellitus, type 2) E11.9 Annual physical exam Z00.00 Assessment & Plan Assessment & Plan (1) HTN (hypertension): Code(s): I10 - Essential (primary) hypertension Category: Medical Plan: cont Lisinopril (2) Hyperlipidemia: Code(s): E78.5 - Hyperlipidemia, unspecified Category: Medical Plan: cont statin (3) DM type 2 (diabetes mellitus, type 2): Code(s): E11.9 - Type 2 diabetes mellitus without complications Category: Medical Plan: a1c 6.7, cont ADA diet, regular exercise, weight loss discussed with the patient. She will continue same medications follow-up in 3 months with a fasting labs before (4) Annual physical exam: Code(s): Z00.00 - Encounter for general adult medical examination without abnormal findings Category: Medical Plan: well balance diet, regular exercise weight loss discussed with the patient. She is up-to-date with the Pap smear by body trimmer mammogram and had negative Cologuard in 2022 Orders: Orders Comprehensive [place]. Panel Fast 3 Months E11.9 - Type 2 diabetes mellitus without complications, E78.5 - Hyperlipidemia, unspecified, I10 - Essential (primary) hypertension Lipid Panel 3 Months E11.9 - Type 2 diabetes mellitus without complications, E78.5 - Hyperlipidemia, unspecified, I10 - Essential (primary) hypertension Microalbumin, Random (w Creat) 3 Months E11.9 - Type 2 diabetes mellitus without complications, E78.5 - Hyperlipidemia, unspecified, I10 - Essential (primary) hypertension Hemoglobin A1c 3 Months E11.9 - Type 2 diabetes mellitus without complications, E78.5 - Hyperlipidemia, unspecified, I10 - Essential (primary) hypertension Vitamin D 25-OH Total 3 Months E11.9 - Type 2 diabetes mellitus without complications, E78.5 - Hyperlipidemia, unspecified, I10 - Essential (primary) hypertension Medications: New ammonium lactate 12% (AmLactin) 1 appl topical DAILY 225 grams 2RF ammonium lactate 12% (AmLactin) 1 appl topical DAILY 225 grams 2RF
--- OUTSIDE RECORDS SUMMARY | 2025-04-01 08:38 | XMS_ITS | Clinical Summary ---
Author Organization [facility] Address [address] [place] [id number] Phone [email or web address] Care Team Providers Care Ocean Import Representative Name Role Phone Unavailable Primary Care Provider [...] FOBT Test 1972 HIV Screening 1972 HPV only / HPV + Pap 1972 Hepatitis C Screening 1972 Pap only testing 1972 Sigmoidoscopy 1972 Annual Preventive Exam 01/24/1990 Hep B Infection Screening - Triple Screen 01/24/1990 Hepatitis B Immunization (1 of 3 - 19+ 3-dose series) 01/24/1991 Tetanus Diphtheria and Pertu ssis Immunization (1 - Tdap) 01/24/1991 Breast Cancer Screening 01/24/2002 Pneumococcal: 50+ Years (1 o f 1 - PCV) 01/24/2022 Zoster Immunization (1 of 2) 01/24/2022 Covid-19 Immunization (1 - 2 025-26 season) 2024 Influenza Immunization (#1) 2024 HIB [...]
--- OUTSIDE RECORDS SUMMARY | 2025-04-01 08:38 | XMS_ITS | Encounter Summary ---
Author Organization [facility] Address [address] [place] [address] Care Team Providers Care Leadership Coach Name Role Phone Chelsea Ly MD Primary Care Provider [phone] Encounter Details Date Type Department Care Team (Late st Contact Info) Description 08/24/2023 Scanned Document [address] [address] Radiology, Scan Social History Tobacco [...] on filedocumented in this encounter Care Teams Leadership Coach Relationship Specialty Start Date End Date Chelsea Ly MD [address] [place] [address] PCP - General 06/02/23 documented as of this encounter
--- OUTSIDE RECORDS SUMMARY | 2025-04-01 08:38 | XMS_ITS | Clinical Summary ---
Author Organization [facility] Address [address] [place] [address] Care Team Providers Care Neurosurgery Research Director Name Role Phone Chelsea Ly MD Primary Care Provider Allergies Active Allergy Reactions Criticality Noted Date [...] 50+ (1 of 1 - PCV) 01/24/2022 RSV Vaccine 50 years and old er and Patients (1 - Risk 50-74 years 1-dose series) 01/24/2022 Zoster (Shingles) Vaccine (1 of 2) 01/24/2022 Influenza Vaccine 11/16/2024 01/01/2024 COVID-19 Vaccine (4 - 2024-2 6 season) 2024 01/14/2023, 08/29/2020, 08/08/2020 Mammogram 11/19/2026 11/19/2024, 10/18, 11/12/2022, Additional history exists Procedures Procedure Name Priority Date/Time Associated Diagnosis Comments MG SCREENING DIGITAL BREAST EDDIE- BILATERAL Routine 11/19/2024 9:38 AM EDT from Last 3 Months or [...] for referring your patient to us, Irma Radha [id number] (Electronically Signed - 11/20/2024 16:05) Copy: CODY COX MD [facility] [address] [address] CHELSEA LY MD [facility] [address] [place] [address] Procedure Note Irma Corral MD - 11/20/2024 [...] signed by: Irma Corral MD 11/20/2024 04:05 [facility] Thank you for referring your patient to us, Irma Garcia [id number] (Electronically Signed - 11/20/2024 16:05) Copy: CODY COX MD [email or web address] [address] [place] [address] CHELSEA LY MD [facility] [address] [place] [address] us Rad-Self Referred IMG LEGACY PROCEDURES Final Result from Last 3 Months or Most Recently Relevant to Health Maintenance Insurance [facility] [place] [address] [place] [address] TRAVELERS [facility] [employer] Care Teams Neurosurgery Research Director Relationship Specialty Start Date End Date Chelsea Ly MD [address] [place] [address] PCP - General 06/02/23
== END 2025-04-01 11:37 | disposition home or self-care (01) ==
LOC: HO.HMCC 08:05
PROVIDERS: PCP Internal Medicine; Visit Provider Internal Medicine
DX: Z00.00 Encounter for general adult medical examination without abnormal findings (principal); E11.69 Type 2 diabetes mellitus with other specified complication; I10 Essential (primary) hypertension; E78.5 Hyperlipidemia, unspecified